=== PATIENT | male | born 1940 | race Caucasian/White ===

== ENCOUNTER 2023-08-28 23:30 | Emergency (ER) | payer OTHER ==
[2023-08-29 00:05] LABS: Absolute Lymphocytes (CBC) 1.3 K/uL (0.7-4.9); Hematocrit 30.1 % (39.6-49.0); MCV 74.7 fL (80-100); MPV 7.8 fL (7.6-11.3); Platelets 118 thou/uL (152-406); Protime INR 1.21; RBC Red Blood Cell Count 4.03 M/uL (4.33-5.43)
[2023-08-29 00:21] LABS: AST/SGOT 7 U/L (15-37); Albumin 3.1 g/dL (3.4-5.0); Alkaline Phosphatase 165 U/L (45-117); BUN Blood Urea Nitrogen 19 mg/dL (7-18); Bicarbonate 33 mEq/L (21-32); Bilirubin Direct 0.1 mg/dL (0-0.2); Bilirubin Indirect, Calculated 0.2 mg/dL (0.2-0.8); Bilirubin Total 0.3 mg/dL (0.2-1.0); Glomerular Filtration Rate 41 ml/min (=/>90); Glucose Level 143 mg/dL (74-106); Magnesium 2.1 mg/dL (1.6-2.4); NT PRO-BNP 1134 pg/mL (<450); Potassium 3.4 mEq/L (3.5-5.1); Protein, Total 6.7 g/dL (6.4-8.2); Sodium Level 140 mEq/L (136-145); Troponin High Sensitivity 7.8 pg/mL (<58.9)
[2023-08-29 00:23] LABS: ALT/SGPT < 10 U/L (16-61)
--- NOTE | 2023-08-29 04:12 | EDPHYS ---
Physician Documentation [facility] Name: Daniel Sharp Age: 83 yrs Sex: Male : 1940 Arrival Date: 08/28/2023 Time: 23:30 Bed 20 Private MD: ED Physician Chip Mcguire HPI: 08/28 23:43 This 83 yrs old Male presents to ER via Wheelchair with complaints of Chest sp4 Pain. 08/29 00:28 Is a very pleasant 83-year-old male presents with acute onset chest pain 2 hours ago sp4 described as midsternal pressure which was alleviated with 3 tablets of nitroglycerin prior to arrival. This is patient's first visit to this emergency room. Patient has history of atrial fibrillation, diabetes mellitus type 2, congestive heart failure, coronary artery disease, history of CABG, history of several stents, history of hypertension, neuropathy, chronic anticoagulation with Plavix and Xarelto. History of GERD, hyperlipidemia, hypothyroidism, depression, history of diabetic neuropathy, history of hypertension, history of gout, history of chronic pain,. Patient's medications include Protonix 40 mg p.o. daily, Xarelto 15 mg daily, atorvastatin 80 mg daily, nitroglycerin as needed, levothyroxine 50 mcg daily, spironolactone 50 mg daily, escitalopram 10 mg daily gabapentin 600 mg twice a day, isosorbide dinitrate 30 mg daily, metoprolol extended release 25 mg daily, fentanyl patch 50 mcg daily, allopurinol 100 mg daily, Bumex 1 mg twice a day. 00:35 Lastly patient is on Plavix 75 mg p.o. daily . sp4 Historical: - Allergies: 08/28 23:33 No Known Allergies; jb4 - Home Meds: 08/29 00:18 gabapentin 600 mg oral tablet 1 tab 3 times per day [Active]; cetirizine 10 mg oral tm6 tablet 1 tab daily [Active]; bumetanide 1 mg Oral tablet 1 tab daily [Active]; atorvastatin 80 mg oral tablet 1 tab daily [Active]; metoprolol succinate 25 mg oral Tablet, Extended Release 24 hr 1 tab nightly [Active]; clopidogrel 75 mg oral tablet 1 tab daily [Active]; isosorbide dinitrate 30 mg Oral tablet 1 tab daily [Active]; escitalopram oxalate 10 mg oral tablet 1 tab twice a day [Active]; levothyroxine 50 mcg tablet 1 tabs daily [Active]; pantoprazole 40 mg oral tablet, delayed release (enteric coated) 1 tab daily [Active]; spironolactone 50 mg Oral tablet 1 tab daily [Active]; - PMHx: 08/28 23:33 HTN; DM; CHF; A-fib; Neuropathy; jb4 08/29 00:26 Hypothyroidism; Chronic back pain; Diabetes mellitus; tm6 - PSHx: 08/28 23:33 Open Heart surgery; jb4 - Immunization history:: Adult Immunizations up to date. - Social history:: Smoking status: Patient denies any tobacco usage or history of. ROS: 08/29 00:36 Constitutional: Negative for fever, chills, and weight loss, positive chest pressure sp4 All other systems are negative, Exam: 00:36 Constitutional: This is a well developed, well nourished patient who is awake, alert, sp4 and in no acute distress. Head/Face: Normocephalic, atraumatic. Eyes: Pupils equal round and reactive to light, extra-ocular motions intact. Lids and lashes normal. Conjunctiva and sclera are not injected. Cornea within normal limits. Periorbital areas with no swelling, redness, or edema. ENT: Nares patent. No nasal discharge, no septal abnormalities noted. Tympanic membranes are normal and external auditory canals are clear. Oropharynx with no redness, swelling, or masses, exudates, or evidence of obstruction, uvula midline. Mucous membranes moist. Neck: Trachea midline, no thyromegaly or masses palpated, and no cervical lymphadenopathy. Supple, full range of motion without nuchal rigidity, or vertebral point tenderness. Chest/axilla: Normal chest wall appearance and motion. Nontender with no deformity. No lesions are appreciated. Cardiovascular: Regular rate and rhythm with a normal S1 and S2. No gallops, murmurs, or rubs. Normal PMI, no JVD. No pulse deficits. Respiratory: Lungs have equal breath sounds bilaterally, clear to auscultation and percussion. No rales, rhonchi or wheezes noted. No increased work of breathing, no retractions or nasal flaring. Abdomen/GI: Soft, non-tender, with normal bowel sounds. No distension or tympany. No guarding or rebound. No evidence of tenderness throughout. Back: No spinal tenderness. No costovertebral tenderness. Skin: Warm, dry with normal turgor. Normal color with no rashes, no lesions, and no evidence of cellulitis. MS/ Extremity: Pulses equal, no cyanosis. Neurovascular intact. Full, normal range of motion. Neuro: Awake and alert, GCS 15, oriented to person, place, time, and situation. Cranial nerves II-XII grossly intact. Motor strength 5/5 in all extremities. Sensory grossly intact. Psych: Awake, alert, with orientation to person, place and time. Behavior, mood, and affect are within normal limits 00:37 ECG was reviewed by the Attending Physician. There is ventricular rate 63, normal sinus sp4 rhythm at the rate of 63, EKG time 2334. 03:44 Repeat EKG at 23 34 normal sinus rhythm with a rate of 63, no ST elevation or sp4 depression, no ectopy. Normal EKG Vital Signs: 08/28 23:32 Weight 92.08 kg (R); Height 5 ft. 8 in. (R); jb4 23:39 BP 148 / 60; Pulse 64; Resp 14; Pulse Ox 99% on R/A; tm6 23:43 Temp 97.9(O); tm6 23:43 Pain 0/10; tm6 08/29 00:46 BP 131 / 54; Pulse 62; Resp 16; Pulse Ox 95% ; Pain 0/10; tm6 01:43 BP 131 / 56; Pulse 62; Resp 14; Pulse Ox 96% ; Pain 0/10; tm6 03:01 BP 127 / 52; Pulse 63; Resp 15; Pulse Ox 93% on R/A; Pain 0/10; tm6 04:09 BP 130 / 52; Pulse 70; Resp 20; Pulse Ox 97% on R/A; Pain 7/10; tm6 08/28 23:32 Body Mass Index 30.87 (92.08 kg, 172.72 cm) jb4 23:43 Pain Scale: Adult tm6 08/29 00:46 Pain Scale: Adult tm6 01:43 Pain Scale: Adult tm6 03:01 Pain Scale: Adult tm6 04:09 Pain Scale: Adult tm6 MDM: 08/28 23:41 Patient medically screened. sp4 12/13 02:21 ED course: Chest X ray - COMPARISON: None. FINDINGS: Single portable AP view of the sp4 chest. Right costophrenic angle is not fully included. Normal size of the cardiac silhouette. Postsurgical changes related to prior CABG. Prominent opacity in the right suprahilar region could be due to pneumonia or mass. There are some hazy and interstitial opacities in the right mid to lower lung and at the left lung base. No pneumothorax. No visualized pleural effusion. No acute osseous abnormality. IMPRESSION: Prominent opacity in the right suprahilar region which could be due to pneumonia or mass. Recommend CT with contrast for further evaluation. . 03:03 ED course: Chest - RadLex: XR CHEST 1 VIEW CLINICAL HISTORY: 83 years Male, CHEST PAIN sp4 COMPARISON: None. FINDINGS: Single portable AP view of the chest. Right costophrenic angle is not fully included. Normal size of the cardiac silhouette. Postsurgical changes related to prior CABG. Prominent opacity in the right suprahilar region could be due to pneumonia or mass. There are some hazy and interstitial opacities in the right mid to lower lung and at the left lung base. No pneumothorax. No visualized pleural effusion. No acute osseous abnormality. IMPRESSION: Prominent opacity in the right suprahilar region which could be due to pneumonia or mass. Recommend CT with contrast for further evaluation. . 04:18 Differential diagnosis: abnormal EKG, acute myocardial infarction, acute pericarditis, sp4 anxiety, coronary artery disease chest wall pain. HEART Score: History: Moderately Suspicious (1), ECG: Normal (0), Age: > or = 65 years (2), Risk Factors: > or = 3 Risk factors for atherosclerotic disease (2), Troponin: < or = 1 x Normal Limit (0), Total Score = 5. Data reviewed: vital signs, nurses notes, lab test result(s), EKG, radiologic studies, plain films. ED course: The finding of opacification in the right upper lung -advised the patient to see picker box operator for CT of the chest on outpatient basis. 08/28 23:41 Order name: Basic Metabolic Panel; Complete Time: 00:28 sp4 12 23:41 Order name: CBC with Diff; Complete Time: 00:28 sp4 08/28 23:41 Order name: LFT's; Complete Time: 00:28 sp4 08/28 23:41 Order name: Magnesium; Complete Time: 00:28 sp4 08/28 23:41 Order name: NT PRO-BNP; Complete Time: 00:28 sp4 08/28 23:41 Order name: PT-INR; Complete Time: 00:28 sp4 08/28 23:41 Order name: Troponin HS; Complete Time: 00:28 sp4 08/29 01:59 Order name: Troponin High Sensitivity: to be collected at 0300; Complete Time: 04:13 pf1 08/28 23:41 Order name: XRAY Chest (1 view) sp4 08/28 23:41 Order name: EKG; Complete Time: 23:41 sp4 08/29 02:21 Order name: EKG; Complete Time: 02:22 sp4 08/28 23:41 Order name: Cardiac monitoring; Complete Time: 23:44 sp4 08/28 23:41 Order name: EKG - Nurse/Tech; Complete Time: 23:44 sp4 08/28 23:41 Order name: IV Saline Lock; Complete Time: 23:44 sp4 08/28 23:41 Order name: Labs collected and sent; Complete Time: 23:44 sp4 08/28 23:41 Order name: O2 Per Protocol; Complete Time: 23:44 sp4 08/28 23:41 Order name: O2 Sat Monitoring; Complete Time: 23:44 sp4 08/29 02:21 Order name: EKG - Nurse/Tech; Complete Time: 02:55 sp4 EC:37 Rate is 63 beats/min. Rhythm is regular, Normal Sinus Rhythm. QRS [place] is Normal. [place] sp4 interval is normal. QRS interval is normal. QT interval is normal. No Q waves. T waves are Normal. No ST changes noted. Clinical impression: Normal ECG. Interpreted by me. Reviewed by me. Administered Medications: 04:11 Drug: Acetaminophen PO 1000 mg PO once Route: PO; tm6 Disposition Summary: 08/29/23 04:11 Discharge Ordered Notes: WE recommend visit with Client Renewal Specialist tomorrow or today Location: Home sp4 Problem: new sp4 Symptoms: have improved sp4 Condition: Stable sp4 Diagnosis - Abdominal pain, Generalized sp4 - Chest pain, unspecified sp4 Followup: sp4 - With: Private Physician - When: 2 - 3 days - Reason: If symptoms return Discharge Instructions: - Discharge Summary Sheet sp4 - Nonspecific Chest Pain, Adult sp4 Forms: - Patient Portal Instructions sp4 Signatures: Dispatcher [employer] Duran Mahoney RN RN jb4 Chip Mcguire MD MD sp4 Eva Meyer RN RN tm6
--- NOTE | 2023-08-29 04:12 | ER ---
Nurse's Notes [facility] Name: Daniel Sharp Age: 83 yrs Sex: Male : 1940 Arrival Date: 08/28/2023 Time: 23:30 Bed 20 Private MD: Diagnosis: Abdominal pain, Generalized;Chest pain, unspecified Presentation: 08/28 23:32 Chief complaint: Patient states: I am having chest pressure and a sharp pain on the jb4 left side of my chest and my left arm is tingling, I am not sure if it is from my chest pain or neuropathy. Coronavirus screen: At this time, the client does not indicate any symptoms associated with coronavirus-19. Ebola Screen: No symptoms or risks identified at this time. Initial Sepsis Screen: Does the patient meet any 2 criteria? No. Patient's initial sepsis screen is negative. Does the patient have a suspected source of infection? No. Patient's initial sepsis screen is negative. Risk Assessment: Do you want to hurt yourself or someone else? Patient reports no desire to harm self or others. Onset of symptoms was August 28, 2023. Transition of care: patient was not received from another setting of care. 23:32 Method Of Arrival: Wheelchair jb4 23:32 Acuity: KHOI 3 jb4 23:[address] Salguero PCP and Cardiology Dr. Adan Ibarra [phone], pf1 at [facility] at . Historical: - Allergies: 23:33 No Known Allergies; jb4 - Home Meds: 08/29 00:18 gabapentin 600 mg oral tablet 1 tab 3 times per day [Active]; cetirizine 10 mg oral tm6 tablet 1 tab daily [Active]; bumetanide 1 mg Oral tablet 1 tab daily [Active]; atorvastatin 80 mg oral tablet 1 tab daily [Active]; metoprolol succinate 25 mg oral Tablet, Extended Release 24 hr 1 tab nightly [Active]; clopidogrel 75 mg oral tablet 1 tab daily [Active]; isosorbide dinitrate 30 mg Oral tablet 1 tab daily [Active]; escitalopram oxalate 10 mg oral tablet 1 tab twice a day [Active]; levothyroxine 50 mcg tablet 1 tabs daily [Active]; pantoprazole 40 mg oral tablet, delayed release (enteric coated) 1 tab daily [Active]; spironolactone 50 mg Oral tablet 1 tab daily [Active]; - PMHx: 08/28 23:33 HTN; DM; CHF; A-fib; Neuropathy; jb4 08/29 00:26 Hypothyroidism; Chronic back pain; Diabetes mellitus; tm6 - PSHx: 08/28 23:33 Open Heart surgery; jb4 - Immunization history:: Adult Immunizations up to date. - Social history:: Smoking status: Patient denies any tobacco usage or history of. Screenin:41 [facility] ED Fall Risk Assessment (Adult) History of falling in the last 3 months, tm6 including since admission No falls in past 3 months (0 pts). Abuse screen: Denies threats or abuse. Denies injuries from another. Nutritional screening: No deficits noted. Tuberculosis screening: No symptoms or risk factors identified. Assessment: 23:39 General: Appears in no apparent distress. Behavior is calm, cooperative, appropriate tm6 for age. Pain: Complains of pain in chest and left arm Quality of pain is described as aching, tingling. Neuro: Level of Consciousness is awake, alert, obeys commands, Oriented to person, place, time, situation. Cardiovascular: Reports chest pain, Capillary refill < 3 seconds Patient's skin is warm and dry. Rhythm is sinus rhythm Chest pain. Respiratory: Airway is patent Respiratory effort is even, unlabored, Respiratory pattern is regular, symmetrical. GI: Abdomen is round non-distended. : No signs and/or symptoms were reported regarding the genitourinary system. EENT: No signs and/or symptoms were reported regarding the EENT system. Derm: No signs and/or symptoms reported regarding the dermatologic system. Musculoskeletal: No signs and/or symptoms reported regarding the musculoskeletal system. 23:42 Reassessment: Fentanyl patch on left deltoid; diabetic patch on right deltoid. tm6 23:43 Cardiovascular: Chest pain quality is pressure. tm6 08/29 00:47 Reassessment: Patient appears in no apparent distress at this time. Patient and/or tm6 family updated on plan of care and expected duration. Pain level reassessed. Patient is alert, oriented x 3, equal unlabored respirations, skin warm/dry/pink. Patient denies pain at this time. 01:44 Reassessment: No changes from previously documented assessment. tm6 02:34 Reassessment: elimination needs met. tm6 03:02 Reassessment: Patient appears in no apparent distress at this time. Patient and/or tm6 family updated on plan of care and expected duration. Pain level reassessed. Patient is alert, oriented x 3, equal unlabored respirations, skin warm/dry/pink. 04:10 Reassessment: patient said he had 7/10 back pain, has chronic back pain. tm6 Vital Signs: 08/28 23:32 Weight 92.08 kg (R); Height 5 ft. 8 in. (R); jb4 23:39 BP 148 / 60; Pulse 64; Resp 14; Pulse Ox 99% on R/A; tm6 23:43 Temp 97.9(O); tm6 23:43 Pain 0/10; tm6 08/29 00:46 BP 131 / 54; Pulse 62; Resp 16; Pulse Ox 95% ; Pain 0/10; tm6 01:43 BP 131 / 56; Pulse 62; Resp 14; Pulse Ox 96% ; Pain 0/10; tm6 03:01 BP 127 / 52; Pulse 63; Resp 15; Pulse Ox 93% on R/A; Pain 0/10; tm6 04:09 BP 130 / 52; Pulse 70; Resp 20; Pulse Ox 97% on R/A; Pain 7/10; tm6 08/28 23:32 Body Mass Index 30.87 (92.08 kg, 172.72 cm) jb4 23:43 Pain Scale: Adult tm6 08/29 00:46 Pain Scale: Adult tm6 01:43 Pain Scale: Adult tm6 03:01 Pain Scale: Adult tm6 04:09 Pain Scale: Adult tm6 Vitals: 08/28 23:39 Cardiac Rhythm Assessment Regular Sinus rhythm. tm6 ED Course: 23:32 Patient arrived in ED. rv1 23:33 Triage completed. jb4 23:33 Arm band placed on right wrist. jb4 23:38 Eva Meyer RN is Primary Nurse. tm6 23:40 Chip Mcguire MD is Attending Physician. sp4 23:41 Patient has correct armband on for positive identification. Placed in gown. Bed in low tm6 position. Call light in reach. Side rails up X2. Provided Education on: VS monitoring. Client placed on continuous cardiac and pulse oximetry monitoring. NIBP monitoring applied. alarm security or surveillance monitor on. Noise minimized. Warm blanket given. 23:41 No provider procedures requiring assistance completed. tm6 23:54 Inserted saline lock: 22 gauge in right antecubital area, using aseptic technique. tm6 23:56 Troponin HS Sent. pf1 23:56 PT-INR Sent. pf1 23:56 NT PRO-BNP Sent. pf1 23:56 Magnesium Sent. pf1 23:56 LFT's Sent. pf1 23:56 CBC with Diff Sent. pf1 12 00:27 XRAY Chest (1 view) In Process Unspecified. EDMS 03:00 Troponin High Sensitivity: to be collected at 0300 Sent. pf1 04:18 IV discontinued, intact, bleeding controlled, No redness/swelling at site. Pressure tm6 dressing applied. Administered Medications: 04:11 Drug: Acetaminophen PO 1000 mg PO once Route: PO; tm6 Medication: 04:18 VIS not applicable for this client. tm6 Outcome: 04:11 Discharge ordered by MD. otero 04:18 Discharged to home via wheelchair, with family, tm6 04:18 Condition: stable 04:18 Discharge instructions given to patient, family, Instructed on discharge instructions, follow up and referral plans. Demonstrated understanding of instructions, follow-up care, 04:18 Patient left the ED. tm6 Signatures: Dispatcher [employer] Duran Mahoney, RN RN jb4 Diane Tan RN RN pf1 Ariana Arthur Sergey, MD MD sp4 Eva Meyer RN RN tm6
[2023-08-29] MEDS ORDERED: ACETAMINOPHEN 500 MG TAB ONE (04:22)
[2023-08-29 05:07] VITALS: TEMP 97.9
[2023-08-29 05:21] VITALS: BP 130/52; O2SAT 97
--- NOTE | 2023-08-29 13:03 | EKG ---
Test Date: 2023-08-28 Test Time: 23:34:28 Medical Geneticist: JOSE DAVID MEASUREMENT RESULTS: Intervals: Rate: 63 IN: 194 QRSD: 90 QT: 428 QTc: 437 [place]: P: 61 IN: 194 QRS: 39 T: 23 INTERPRETIVE STATEMENTS: Normal sinus rhythm Nonspecific ST abnormality Abnormal ECG Compared to ECG 10/14/2008 20:19:39 ST (T wave) deviation now present T-wave abnormality no longer present Electronically Signed On 08-29-23 13:02:58 ADMIN DIR by Fortunato Nayak
--- NOTE | 2023-08-29 13:11 | RAD REPORT ---
EXAM DESCRIPTION: RAD - Chest Single View - 08/29/2023 12:25 am CLINICAL HISTORY: 83 years Male, CHEST PAIN COMPARISON: None. FINDINGS: Single portable AP view of the chest. Right costophrenic angle is not fully included. Norm al size of the cardiac silhouette. Postsurgical changes related to prior CABG. Prominent opacity in t he right suprahilar region could be due to pneumonia or mass. There are some hazy and interstitial op acities in the right mid to lower lung and at the left lung base. No pneumothorax. No visualized pleu ral effusion. No acute osseous abnormality. IMPRESSION: Prominent opacity in the right suprahilar region which could be due to pneumonia or mass . Recommend CT with contrast for further evaluation. Electronically signed by: Peggy Quezada MD 08/29/2023 12:33 AM SUPERVISOR TELEVISION [employer]ASSIS REPAIR Due to temporary technical issues with the PACS/Fluency reporting system, reports are being signed by the in house radiologist without review as a courtesy to ensure prompt reporting. The interpreting r adiologist is fully responsible for the content of the report.
== END 2023-08-29 04:18 | disposition home or self-care (01) ==
LOC: ER 23:30
DX: R07.89 Other chest pain (principal); R10.84 Generalized abdominal pain; E11.9 Type 2 diabetes mellitus without complications; I10 Essential (primary) hypertension; I50.9 Heart failure, unspecified; I48.91 Unspecified atrial fibrillation; Z79.01 Long term (current) use of anticoagulants
CPT/HCPCS: 36415; 71045; 80048; 80076; 83735; 83880; 84484; 85025; 85610; 93005

== ENCOUNTER 2024-01-29 10:32 | Observation (INO) | payer OTHER ==
[2024-01-29 11:35] LABS: Absolute Basophils 0.1 K/uL (0-0.5); Absolute Eosinophils 0.4 K/uL (0-0.5); Absolute Lymphocytes (CBC) 0.9 K/uL (0.7-4.9); Absolute Monocytes 0.5 K/uL (0.1-1.3); Basophils % 0.8 % (0-1.3); Eosinophils % 6.2 % (0-4.4); Hematocrit 38.8 % (39.6-49.0); Hemoglobin 12.6 g/dL (13.6-17.9); Lymphocytes % 12.8 % (15.3-44.8); MCH 25.8 pg (27.0-35.0); MCHC 32.4 g/dL (32.0-36.0); MCV 79.7 fL (80-100); MPV 7.7 fL (7.6-11.3); Monocytes % 7.6 % (3.3-12.3); Neutrophils % 72.6 % (41.7-73.7); Platelets 172 thou/uL (152-406); RBC Red Blood Cell Count 4.87 M/uL (4.33-5.43); Red Cell Distribution Width 17.2 % (12.1-15.2)
[2024-01-29 11:36] LABS: Specific Gravity 1.007 (1.005-1.030); Urine Bilirubin NEGATIVE (Negative); Urine Blood Negative (Negative); Urine Clarity Clear (Clear); Urine Color Colorless (Yellow); Urine Glucose NEGATIVE (Negative); Urine Ketones NEGATIVE (Negative); Urine Microscopic Reflex YN NO UMIC; Urine Nitrite NEGATIVE (Negative); Urine Protein NEGATIVE (Negative); Urine Urobilinogen Normal (Normal)
[2024-01-29 11:38] LABS: PT Prothrombin Time 12.2 SECONDS (9.5-12.5); Protime INR 1.11
[2024-01-29 11:49] LABS: SARS-CoV-2 Antigen CONTROL BLUE LINE VIS/BG OK; SARS-CoV-2 Antigen Rapid Res Negative (Negative)
[2024-01-29 12:00] LABS: AST/SGOT 11 U/L (15-37); Albumin 3.2 g/dL (3.4-5.0); Albumin/Globulin Ratio 0.8 (1.1-1.8); Alkaline Phosphatase 157 U/L (45-117); Anion Gap 8.4 mEq/L (5.0-15.0); BUN Blood Urea Nitrogen 31 mg/dL (7-18); Bicarbonate 28 mEq/L (21-32); Bilirubin Direct 0.2 mg/dL (0-0.2); Bilirubin Indirect, Calculated 0.3 mg/dL (0.2-0.8); Bilirubin Total 0.5 mg/dL (0.2-1.0); Glomerular Filtration Rate 43 ml/min (=/>90); Glucose Level 234 mg/dL (74-106); Lipase 39 U/L (13-75); NT PRO-BNP 619 pg/mL (<450); Potassium 4.4 mEq/L (3.5-5.1); Protein, Total 7.2 g/dL (6.4-8.2); Sodium Level 135 mEq/L (136-145); Troponin High Sensitivity 6.2 pg/mL (<58.9)
[2024-01-29 12:02] LABS: ALT/SGPT < 14 U/L (16-61)
--- NOTE | 2024-01-29 12:11 | RAD REPORT ---
EXAM DESCRIPTION: Jaylyn Single View01/29/2024 12:00 pm CLINICAL HISTORY: Shortness of breath COMPARISON: none FINDINGS: Mild patchy opacities mid and lower right lung. Left lung appears clear. Heart is mildly enlarged. Postsurgical changes involve the chest IMPRESSION: Mild patchy opacities right lung probably pneumonia
--- NOTE | 2024-01-29 12:11 | ER ---
Nurse's Notes [facility] Name: Daniel Sharp Age: 83 yrs Sex: Male : 1940 Arrival Date: 01/29/2024 Time: 10:32 Bed 18 Private MD: Diagnosis: Syncope Near;Chest pain, unspecified;Dyspnea Presentation: 01/28 10:33 Chief complaint: EMS states: SOB, GEN WEAKNESS. Coronavirus screen: At this time, the bp client does not indicate any symptoms associated with coronavirus-19. Ebola Screen: No symptoms or risks identified at this time. Initial Sepsis Screen: Does the patient meet any 2 criteria? No. Patient's initial sepsis screen is negative. Does the patient have a suspected source of infection? No. Patient's initial sepsis screen is negative. Risk Assessment: Do you want to hurt yourself or someone else? Patient reports no desire to harm self or others. Onset of symptoms is unknown. Care prior to arrival: Glucose check: 216. 10:33 Method Of Arrival: EMS: [facility] bp 10:33 Acuity: KHOI 2 bp Triage Assessment: 10:34 General: Appears distressed, Behavior is cooperative, appropriate for age, anxious. bp Pain: Denies pain. EENT: No deficits noted. Neuro: Level of Consciousness is awake, alert, obeys commands, Oriented to Appropriate for age. Cardiovascular: Rhythm is sinus rhythm. Respiratory: Reports shortness of breath Airway is patent. GI: No signs and/or symptoms were reported involving the gastrointestinal system. : No signs and/or symptoms were reported regarding the genitourinary system. Derm: No deficits noted. Musculoskeletal: No deficits noted. Historical: - Allergies: 10:34 No Known Allergies; bp - PMHx: 10:34 a-fib; CHF; chronic back pain; diabetes mellitus; DM; HTN; Hypothyroidism; neuropathy; bp - Immunization history:: Adult Immunizations up to date. - Infectious Disease History:: Denies. - Social history:: Smoking status: Patient denies any tobacco usage or history of. Screenin:36 [facility] ED Fall Risk Assessment (Adult) History of falling in the last 3 months, bp including since admission No falls in past 3 months (0 pts). Abuse screen: Denies threats or abuse. Denies injuries from another. Nutritional screening: No deficits noted. Tuberculosis screening: No symptoms or risk factors identified. Assessment: 10:40 General: Appears in no apparent distress. comfortable, Behavior is appropriate for age. bp Pain: Denies pain. Neuro: Level of Consciousness is awake, alert, obeys commands, Oriented to Appropriate for age. Cardiovascular: Rhythm is sinus rhythm. 11:38 Reassessment: Patient appears in no apparent distress at this time. Patient is alert, bp oriented x 3, equal unlabored respirations, skin warm/dry/pink. 14:30 Reassessment: Patient appears in no apparent distress at this time. Patient is alert, bp oriented x 3, equal unlabored respirations, skin warm/dry/pink. 16:53 Reassessment: REPORT FAXED FOR 204. bp Vital Signs: 10:33 BP 135 / 76; Pulse 94; Resp 24; Temp 98; Pulse Ox 99% on R/A; Weight 88.45 kg; Height 5 bp ft. 9 in. ; 10:36 BP 128 / 63; Pulse 87; Resp 24; Temp 97.6; Pulse Ox 98% ; bp 11:37 BP 103 / 63; Pulse 86; Resp 16; Pulse Ox 94% ; bp 13:30 BP 112 / 67; Pulse 84; Resp 15; Pulse Ox 95% ; bp 15:00 BP 131 / 69; Pulse 74; Resp 15; Pulse Ox 98% ; bp 16:55 BP 128 / 61; Pulse 86; Resp 15; Pulse Ox 99% ; bp 10:33 Body Mass Index 28.80 (88.45 kg, 175.26 cm) bp ED Course: 10:32 Patient arrived in ED. ll1 10:33 Jelani Mccormick, OLESYA is Primary Nurse. bp 10:34 Triage completed. bp 10:34 Kwabena Andujar MD is Attending Physician. lisa 10:34 Arm band placed on. bp 10:36 Patient has correct armband on for positive identification. bp 11:20 Inserted saline lock: 22 gauge in right forearm, using aseptic technique. Blood bp collected. 11:53 XRAY Chest (1 view) In Process Unspecified. EDMS 12:10 Ivan May MD is Hospitalizing Provider. lisa 16:55 No provider procedures requiring assistance completed. Patient admitted, IV remains in bp place. 16:57 Provided Education on: N/A. bp Administered Medications: 13:32 Not Given (Hemodynamic Parameters): ns 0.9% 1000 ml IV at 125 ml/hr continuous bp Medication: 16:57 VIS not applicable for this client. bp Outcome: 12:11 Decision to Hospitalize by Provider. lisa 16:55 Admitted to Tele accompanied by tech, family with patient, via stretcher, room 204, bp with chart, Report called to FAX 16:55 Condition: stable 16:55 Instructed on the need for admit, 17:54 Patient left the ED. bp Signatures: Dispatcher [employer] Kwabena Verduzco MD MD cha Peltier, Brian, RN RN bp Lisa Seals RN RN ll1
--- NOTE | 2024-01-29 12:11 | EDPHYS ---
Physician Documentation [facility] Name: Daniel Sharp Age: 83 yrs Sex: Male : 1940 Arrival Date: 01/29/2024 Time: 10:32 Bed 18 Private MD: ED Physician Kwabena Andujar HPI: 01/28 11:05 This 83 yrs old Male presents to ER via EMS with complaints of syncope, cp , lisa sob , weakness. Historical: - Allergies: 10:34 No Known Allergies; bp - PMHx: 10:34 a-fib; CHF; chronic back pain; diabetes mellitus; DM; HTN; Hypothyroidism; neuropathy; bp - Immunization history:: Adult Immunizations up to date. - Infectious Disease History:: Denies. - Social history:: Smoking status: Patient denies any tobacco usage or history of. ROS: 11:08 Constitutional: Negative for fever, chills, and weight loss, Eyes: Negative for injury, lisa pain, redness, and discharge, ENT: Negative for injury, pain, and discharge, Neck: Negative for injury, pain, and swelling, Cardiovascular: Negative for chest pain, palpitations, and edema, Abdomen/GI: Negative for abdominal pain, nausea, vomiting, diarrhea, and constipation, Back: Negative for injury and pain, : Negative for injury, bleeding, discharge, and swelling, MS/Extremity: Negative for injury and deformity, Skin: Negative for injury, rash, and discoloration, Psych: Negative for depression, anxiety, suicide ideation, homicidal ideation, and hallucinations, Allergy/Immunology: Negative for hives, rash, and allergies, Endocrine: Negative for neck swelling, polydipsia, polyuria, polyphagia, and marked weight changes, Hematologic/Lymphatic: Negative for swollen nodes, abnormal bleeding, and unusual bruising, 11:08 Respiratory: Positive for cough, shortness of breath, 11:08 Neuro: Positive for near syncope, weakness, Exam: 11:08 Constitutional: This is a well developed, well nourished patient who is awake, alert, lisa and in no acute distress. Head/Face: Normocephalic, atraumatic. Eyes: Pupils equal round and reactive to light, extra-ocular motions intact. Lids and lashes normal. Conjunctiva and sclera are non-icteric and not injected. Cornea within normal limits. Periorbital areas with no swelling, redness, or edema. ENT: Nares patent. No nasal discharge, no septal abnormalities noted. Tympanic membranes are normal and external auditory canals are clear. Oropharynx with no redness, swelling, or masses, exudates, or evidence of obstruction, uvula midline. Mucous membranes moist. Neck: Trachea midline, no thyromegaly or masses palpated, and no cervical lymphadenopathy. Supple, full range of motion without nuchal rigidity, or vertebral point tenderness. No Meningismus. Chest/axilla: Normal chest wall appearance and motion. Nontender with no deformity. No lesions are appreciated. Cardiovascular: Regular rate and rhythm with a normal S1 and S2. No gallops, murmurs, or rubs. Normal PMI, no JVD. No pulse deficits. Abdomen/GI: Soft, non-tender, with normal bowel sounds. No distension or tympany. No guarding or rebound. No evidence of tenderness throughout. Back: No spinal tenderness. No costovertebral tenderness. Full range of motion. Male : Normal genitalia with no discharge or lesions. Skin: Warm, dry with normal turgor. Normal color with no rashes, no lesions, and no evidence of cellulitis. MS/ Extremity: Pulses equal, no cyanosis. Neurovascular intact. Full, normal range of motion. Neuro: Awake and alert, GCS 15, oriented to person, place, time, and situation. Cranial nerves II-XII grossly intact. Motor strength 5/5 in all extremities. Sensory grossly intact. Cerebellar exam normal. Normal gait. Psych: Awake, alert, with orientation to person, place and time. Behavior, mood, and affect are within normal limits. 11:08 Respiratory: Exam negative for 11:23 ECG was reviewed by the Attending Physician. [facility] Vital Signs: 10:33 BP 135 / 76; Pulse 94; Resp 24; Temp 98; Pulse Ox 99% on R/A; Weight 88.45 kg; Height 5 bp ft. 9 in. ; 10:36 BP 128 / 63; Pulse 87; Resp 24; Temp 97.6; Pulse Ox 98% ; bp 11:37 BP 103 / 63; Pulse 86; Resp 16; Pulse Ox 94% ; bp 13:30 BP 112 / 67; Pulse 84; Resp 15; Pulse Ox 95% ; bp 15:00 BP 131 / 69; Pulse 74; Resp 15; Pulse Ox 98% ; bp 16:55 BP 128 / 61; Pulse 86; Resp 15; Pulse Ox 99% ; bp 10:33 Body Mass Index 28.80 (88.45 kg, 175.26 cm) bp MDM: 10:34 Patient medically screened. lisa 11:09 Differential diagnosis: Anemia Bronchitis CHF exacerbation, Chronic Obstructive lisa Pulmonary Disease abnormal EKG, acute myocardial infarction, coronary artery disease gastritis, hiatal hernia, peptic ulcer disease, pneumonia, pulmonary embolus, pneumonia, pulmonary edema, Pulmonary Embolism reactive airway disease. Antibiotic administration: Not indicated. Differential Diagnosis altered mental status, sepsis, flu. The patient was not given aspirin in the Emergency Department. Not indicated due to patient's past medical history. Immunization status: Pneumococcal vaccine: within last 5 years. Influenza vaccine: within last 5 years. Data reviewed: vital signs, nurses notes, EMS record, lab test result(s), EKG, radiologic studies, CT scan, plain films. Consideration of Admission/Observation Patient was admitted/placed on observation. Escalation of care including admission/observation considered. Test considered but Not performed: Ultrasound no 2 d echo. 01/28 10:37 Order name: Basic Metabolic Panel; Complete Time: 12:07 [facility] 01/28 10:37 Order name: CBC with Diff; Complete Time: 11:47 [facility] 01/28 10:37 Order name: LFT's; Complete Time: 12:07 [facility] 01/28 10:37 Order name: Magnesium; Complete Time: 12:07 [facility] 01/28 10:37 Order name: NT PRO-BNP; Complete Time: 12:07 [facility] 01/28 10:37 Order name: PT-INR; Complete Time: 11:47 01/28 10:37 Order name: Troponin HS; Complete Time: 12:07 [facility] 01/28 10:37 Order name: Lipase; Complete Time: 12:07 [facility] 01/28 10:37 Order name: Urinalysis w/ reflexes; Complete Time: 11:47 [facility] 01/28 10:37 Order name: Blood Culture Adult (2) lisa 01/28 10:37 Order name: Lactate w/ 2H reflex if indic.; Complete Time: 12:07 [facility] 01/28 10:37 Order name: Flu; Complete Time: 12:07 [facility] 01/28 10:37 Order name: SARS RAPID; Complete Time: 12:07 01/28 15:05 Order name: Glucose, Ancillary Testing [facility] 01/28 15:06 Order name: Glucose, Ancillary Testing [facility] 01/28 10:37 Order name: XRAY Chest (1 view) [facility] 01/28 10:37 Order name: EKG; Complete Time: 10:38 [facility] 01/28 10:37 Order name: Cardiac monitoring; Complete Time: 10:39 [facility] 01/28 10:37 Order name: EKG - Nurse/Tech; Complete Time: 11:35 [facility] 01/28 10:37 Order name: IV Saline Lock; Complete Time: 11:35 [facility] 01/28 10:37 Order name: Labs collected and sent; Complete Time: 11:35 [facility] 01/28 10:37 Order name: O2 Per Protocol; Complete Time: 10:39 [facility] 01/28 10:37 Order name: O2 Sat Monitoring; Complete Time: 10:39 [facility] EC:23 Rate is 80 beats/min. Rhythm is regular. QRS [place] is Normal. PA interval is normal. QRS lisa interval is normal. QT interval is normal. No Q waves. T waves are Normal. No ST changes noted. Clinical impression: LVH and No evidence of ischemia. Interpreted by me. Reviewed by me. Administered Medications: 13:32 Not Given (Hemodynamic Parameters): ns 0.9% 1000 ml IV at 125 ml/hr continuous bp Disposition Summary: 01/29/24 12:11 Hospitalization Ordered Notes: Hospitalization Status: Observation lisa Provider: Ivan May cha Location: Telemetry/MedSurg (observation) lisa Condition: Stable lisa Problem: new lisa Symptoms: have improved lisa Bed/Room Type: Standard [facility] Room Assignment: 204(01/29/24 16:35) bd Diagnosis - Syncope Near lisa - Chest pain, unspecified lisa - Dyspnea lisa Forms: - Medication Reconciliation Form lisa - SBAR form lisa - Leadership Thank You Letter lisa Signatures: Dispatcher [employer] EDMS Sita Bo Corey, MD MD cha Peltier, Brian, RN RN bp Corrections: (The following items were deleted from the chart) 10:38 10:37 BASIC METABOLIC PANEL+C.LAB.BRZ ordered. EDMS EDMS 10:38 10:37 CBC+H.LAB.BRZ ordered. EDMS EDMS 10:38 10:37 HEPATIC FUNCTION+C.LAB.BRZ ordered. EDMS EDMS 10:38 10:37 MAGNESIUM+C.LAB.BRZ ordered. EDMS EDMS 10:38 10:37 PROBNP+C.LAB.BRZ ordered. EDMS EDMS 10:38 10:37 PROTIME (+INR)+COAG.LAB.BRZ ordered. EDMS EDMS 10:38 10:37 Troponin High Sensitivity+C.LAB.BRZ ordered. EDMS EDMS 10:38 10:38 LIPASE+C.LAB.BRZ ordered. EDMS EDMS 10:38 10:38 Urinalysis+U.LAB.BRZ ordered. EDMS EDMS 10:38 10:38 BLOOD CULTURE*+BA.LAB.BRZ ordered. EDMS EDMS 10:38 10:38 LACTATE+C.LAB.BRZ ordered. EDMS EDMS 10:38 10:38 Influenza Screen (A \T\ B)+BA.LAB.BRZ ordered. EDMS EDMS 10:38 10:38 SARS-COV-2 Antigen Rapid+I.LAB.BRZ ordered. EDMS EDMS 11:26 11:02 Head Brain Wo Cont+CT.RAD.BRZ ordered. EDMS EDMS 16:35 12:11 lisa bd
--- NOTE | 2024-01-29 13:12 | P.HP ---
Certification for Inpatient Patient admitted to: Observation With expected LOS: <2 Midnights Patient will require the following post-hospital care: None Practitioner: I am a practitioner with admitting privileges, knowledge of patient current condition, hospital course, and medical plan of care. Services: Services provided to patient in accordance with Admission requirements found in Title 42 Section 412.3 of the Code of Federal Regulations Patient History Date of Service: 01/29/24 Reason for admission: Near syncope History of Present Illness: Patient is a 83-year-old gentleman who came to the hospital with near syncope. Patient has a history of stage IV lung cancer. Patient has been getting treatment-immunotherapy. Patient's cancer has slowed. However, he still has lost quite a bit of weight and he is feeling weaker. Patient states that he was very lethargic and was difficult to arouse. Patient came into the emergency room for observation. In the ER patient was hemodynamically stable. He was awake and alert. He states his blood sugars been stable. His insulin levels have been decreasing. Patient admitted to the hospital for observation. Allergies No Known Allergies Allergy (Unverified 01/29/24 16:32) Home Medications: Acetaminophen [Tylenol Extra Strength] 2 tab PO Q8H PRN 01/29/24 Allopurinol 100 mg PO DAILY 01/29/24 Atorvastatin Calcium [Lipitor] 80 mg PO DAILY 01/29/24 Bumetanide 2 mg PO BID 01/29/24 Cholecalciferol (Vitamin D3) [Vitamin D3] 25 mcg PO DAILY 01/29/24 Clopidogrel Bisulfate [Plavix*] 75 mg PO DAILY 01/29/24 Escitalopram Oxalate [Lexapro] 10 mg PO DAILY 01/29/24 Gabapentin 600 mg PO TID 01/29/24 Insulin Regular, Human [Novolin R Flexpen] 15 unit SQ TIDWM 01/29/24 Isosorbide Dinitrate 30 mg PO DAILY 01/29/24 Levothyroxine [Synthroid*] 50 mcg PO DAILY 01/29/24 Metoprolol Succinate 25 mg PO BEDTIME 01/29/24 NPH, Human Insulin Isophane [Humulin N] 30 unit SQ BID 01/29/24 Pantoprazole [Protonix Tab*] 40 mg PO DAILY 01/29/24 Potassium Chloride 10 meq PO DAILY 01/29/24 Rivaroxaban [Xarelto*] 15 mg PO DAILY 01/29/24 Sennosides [Senokot] 8.6 mg PO BID 01/29/24 fentaNYL [Fentanyl] 25 mcg TD Q72H #10 patch 01/30/24 - Past Medical/Surgical History -: Diabetes -: Hypertension -: CAD -: Gout -: Depression -: Stage IV lung cancer Past Surgical History: Patient denies surgical history - Family History Father Family History: Reviewed- Non-Contributory - Social History Smoking Status: Former smoker Alcohol use: No CD- Drugs: No Review of Systems 10-point ROS is otherwise unremarkable Physical Examination - Vital Signs Temperature: 98 F Blood Pressure: 110/80 Pulse: 80 Respirations: 18 Pulse Ox (%): 95 - Physical Exam General: Alert, In no apparent distress, Oriented x3 HEENT: Atraumatic, PERRLA, Mucous membr. moist/pink, EOMI, Sclerae nonicteric Neck: Supple, 2+ carotid pulse no bruit, No LAD, Without JVD or thyroid abnormality Respiratory: Clear to auscultation bilaterally, Normal air movement Cardiovascular: Regular rate/rhythm, Normal S1 S2 Gastrointestinal: Normal bowel sounds, Soft and benign, Non-distended, No tenderness Musculoskeletal: No clubbing, No swelling, No tenderness Integumentary: No rashes Neurological: Normal gait, Normal speech, Normal strength at 5/5 x4 extr, Normal tone, Sensation intact, Cranial nerves 3-12 intact, Normal affect Lymphatics: No axilla or inguinal lymphadenopathy - Studies Laboratory Data (last 24 hrs) 01/29/24 01/29/24 01/29/24 11:20 11:20 11:20 WBC 6.90 Hgb 12.6 L Hct 38.8 L Plt Count 172 PT 12.2 INR 1.11 Sodium 135 L Potassium 4.4 BUN 31 H Creatinine 1.60 H Glucose 234 H Magnesium 2.0 Total Bilirubin 0.5 AST 11 L ALT < 14 L Alkaline Phosphatase 157 H Lipase 39 Microbiology Data (last 24 hrs): 01/29/24 11:20 Nasopharnyx Influenza Type A Antigen Screen - Final 01/29/24 11:20 Nasopharnyx Influenza Type B Antigen Screen - Final Assessment & Plan - Problems (Diagnosis) (1) Near syncope Current Visit: Yes Status: Acute (2) CAD (coronary artery disease) Current Visit: Yes Status: Acute (3) Metastatic cancer to lung Current Visit: Yes Status: Acute (4) Diabetes mellitus Current Visit: Yes Status: Acute (5) HTN (hypertension) Current Visit: Yes Status: Acute (6) Gout Current Visit: Yes Status: Acute - Plan Plan: 1. Carotid Doppler 2. Echocardiogram 3. Monitor hemodynamics and monitor blood sugars 4. Monitor on telemetry for 24 hours 5. Adjust fentanyl patch 6. GI DVT prophylaxis Discharge Plan: Home Plan to discharge in: 24 Hours - Advance Directives Does patient have a Living Will: No Does patient have a Durable POA for Healthcare: No - Code Status/Comfort Care Code Status Assessed: Yes Code Status: Full Code Critical Care: No Time Spent Managing PTS Care (In Minutes): 45
[2024-01-29] MEDS ORDERED: ONDANSETRON 4 MG/2 ML VIAL IV PRN (21:16)
[2024-01-29] MEDS ORDERED: ACETAMINOPHEN 500 MG TAB PO PRN (21:20)
[2024-01-29] MEDS: HOME MED 1 EA UNK (Fentanyl [Fentanyl] Patch.Td72) TD SCH (21:30)
[2024-01-29] MEDS: NA CHLORIDE 0.9% 1,000 ML ONE (21:30)
[2024-01-29] MEDS ORDERED: GLUCAGON 1 MG/VIAL IM PRN (21:34)
[2024-01-29] MEDS ORDERED: D50W 25 GM/50 ML SYRINGE IV PRN (21:34)
[2024-01-29] MEDS: ATORVASTATIN 80 MG TAB ONE (21:50)
[2024-01-29] MEDS: GABAPENTIN 300 MG CAP ONE (21:50)
[2024-01-29] MEDS: ACETAMINOPHEN 500 MG TAB ONE (21:50)
[2024-01-29] MEDS: INSULIN REGULAR (HUMAN) 100 UNIT/ML ONE (21:50)
[2024-01-29] MEDS: NA CHLORIDE 0.9% 1,000 ML IV SCH (22:00)
[2024-01-29 22:15] VITALS: BMI 28.8
[2024-01-29 23:20] VITALS: O2SAT 94
[2024-01-30] MEDS ORDERED: D10W 125 ML IV PRN (02:04)
[2024-01-30 05:05] LABS: Absolute Eosinophils 0.5 K/uL (0-0.5); Absolute Lymphocytes (CBC) 1.4 K/uL (0.7-4.9); Absolute Monocytes 0.6 K/uL (0.1-1.3); Basophils % 0.7 % (0-1.3); Eosinophils % 7.9 % (0-4.4); Hematocrit 37.3 % (39.6-49.0); Hemoglobin 12.1 g/dL (13.6-17.9); Lymphocytes % 21.4 % (15.3-44.8); MCH 26.1 pg (27.0-35.0); MCHC 32.6 g/dL (32.0-36.0); MCV 80.2 fL (80-100); MPV 7.7 fL (7.6-11.3); Monocytes % 8.9 % (3.3-12.3); Neutrophils % 61.1 % (41.7-73.7); Platelets 155 thou/uL (152-406); RBC Red Blood Cell Count 4.65 M/uL (4.33-5.43); Red Cell Distribution Width 17.8 % (12.1-15.2)
[2024-01-30 05:13] LABS: PT Prothrombin Time 12.1 SECONDS (9.5-12.5); PTT, Activated Partial Thromb 31.6 SECONDS (24.3-36.9); Protime INR 1.1
[2024-01-30 05:14] LABS: Albumin 3.3 g/dL (3.4-5.0); Albumin/Globulin Ratio 0.9 (1.1-1.8); Alkaline Phosphatase 140 U/L (45-117); Anion Gap 9.2 mEq/L (5.0-15.0); BUN Blood Urea Nitrogen 27 mg/dL (7-18); Bicarbonate 28 mEq/L (21-32); Bilirubin Total 0.6 mg/dL (0.2-1.0); Globulin 3.6 g/dL (2.3-3.5); Glomerular Filtration Rate 51 ml/min (=/>90); Glucose Level 123 mg/dL (74-106); HDL Cholesterol 32 mg/dL (40-60); LDL Cholesterol, Calculated 80 mg/dL (<130); LDL Cholesterol,Calc NonReport 80; Potassium 4.2 mEq/L (3.5-5.1); Protein, Total 6.9 g/dL (6.4-8.2); Sodium Level 136 mEq/L (136-145); Troponin High Sensitivity 6.4 pg/mL (<58.9)
[2024-01-30 05:17] LABS: ALT/SGPT < 14 U/L (16-61); AST/SGOT < 10 U/L (15-37)
--- NOTE | 2024-01-30 07:29 | RAD REPORT ---
EXAM DESCRIPTION: - CP - 01/30/2024 1:50 am CLINICAL HISTORY: Syncope Headache, drowsiness, syncope COMPARISON: No comparisons TECHNIQUE: Real-time sonographic evaluation of both carotid systems was performed. Doppler interroga tion was performed with waveform tracing bilaterally. FINDINGS: Normal high resistance waveforms are noted in both external carotid arteries. The common c arotid arteries and internal carotid arteries show normal low resistance waveforms. No significant plaque formation is seen. Peak systolic and end diastolic velocity values and the ICA/ CCA ratios are in the non-hemodynamically significant range. Antegrade flow seen in both vertebral arteries. IMPRESSION: No significant atherosclerotic changes noted. No evidence of a hemodynamically significant stenosis.
[2024-01-30] MEDS: LEVOTHYROXINE SOD 0.05 MG TABLET PO SCH (08:02)
[2024-01-30] MEDS: PANTOPRAZOLE 40MG TABLET PO SCH (08:02)
[2024-01-30] MEDS: ATORVASTATIN 80 MG TAB PO SCH (08:04)
[2024-01-30] MEDS: ISOSORBIDE DINIT 20 MG TAB PO SCH (08:04)
[2024-01-30] MEDS: VITAMIN D 1000 UNIT TAB PO SCH (08:05)
[2024-01-30] MEDS: ESCITALOPRAM 20 MG TAB PO SCH (08:06)
[2024-01-30] MEDS: GABAPENTIN 300 MG CAP PO SCH (08:06)
[2024-01-30] MEDS: CLOPIDOGREL 75 MG TABLET PO SCH (08:06)
[2024-01-30] MEDS: allopurinoL 100 MG TAB PO SCH (08:06)
[2024-01-30] MEDS: BUMETANIDE 1 MG TABLET PO SCH (08:29)
[2024-01-30] MEDS: INSULIN REGULAR (HUMAN) 100 UNIT/ML SQ SCH (08:34)
[2024-01-30] MEDS: ACETAMINOPHEN 500 MG TAB PO PRN (08:51)
[2024-01-30] MEDS ORDERED: FENTANYL 50 MCG/PATCH TD SCH (09:00)
--- NOTE | 2024-01-30 09:17 | P.PN ---
Subjective Date of Service: 01/30/24 Admitted for syncope,, chest pain, dyspnea Echo ordered, fall precaution Review of Systems Per HPI Physical Examination - Vital Signs Temperature: 97.5 F Blood Pressure: 127/60 Pulse: 108 Respirations: 17 Pulse Ox (%): 98 - Physical Exam General: Alert, In no apparent distress, Oriented x3 HEENT: Atraumatic, Normocephalic Neck: Supple, 2+ carotid pulse no bruit Cardiovascular: Normal pulses, Regular rate/rhythm Gastrointestinal: Normal bowel sounds, Soft and benign Musculoskeletal: No clubbing, No contractures Integumentary: No breakdown, No significant lesion Neurological: Normal gait, Normal speech, Normal strength at 5/5 x4 extr - Studies Laboratory Data (last 24 hrs) 01/29/24 01/29/24 01/29/24 11:20 11:20 11:20 WBC 6.90 Hgb 12.6 L Hct 38.8 L Plt Count 172 PT 12.2 INR 1.11 Sodium 135 L Potassium 4.4 BUN 31 H Creatinine 1.60 H Glucose 234 H Magnesium 2.0 Total Bilirubin 0.5 AST 11 L ALT < 14 L Alkaline Phosphatase 157 H Lipase 39 Microbiology Data (last 24 hrs): 01/29/24 11:20 Nasopharnyx Influenza Type A Antigen Screen - Final 01/29/24 11:20 Nasopharnyx Influenza Type B Antigen Screen - Final Assessment And Plan - Plan Assessment plan Syncope, Echo ordered Orthostatic vital sign Chest pain Telemetry, trend troponin Serial troponins negative Dyspnea-likely secondary to CHF O2 2 L keep sats greater than 92 per Bumex twice daily [id number] Microcytic anemia Trend H&H Hemoglobin 12.6 Acute kidney injury likely prerenal CHF Trend kidney BUN 31, creatinine 1.60-BUN 27 1.38 estimated GFR 50 a-fib History CHF Telemetry, BNP, trend troponin chronic back pain As needed analgesics resume appropriate home diabetes mellitus; DM Accu-Cheks, sliding scale HTN Hypothyroidism neuropathy Resume appropriate home meds Full code DVT Diet cardiac Disposition Discharge Plan: Home - Code Status/Comfort Care Comfort Measures: Palliative Care Critical Care: No Time Spent Managing PTS Care (In Minutes): 35
[2024-01-30 10:31] VITALS: TEMP 98
[2024-01-30] MEDS: BISACODYL E.C. 5 MG TAB PO PRN (10:32)
[2024-01-30] MEDS: METOPROLOL XL 25 MG TAB PO SCH (10:33)
[2024-01-30 12:30] VITALS: BP 110/55
--- NOTE | 2024-01-30 12:32 | ECHO ---
HEIGHT: 5 ft 9 in WEIGHT: 195 lb 0 oz DATE OF STUDY: 01/30/[address]: Ivan May MD 2-DIMENSIONAL: YES M.MODE: YES DOPPLER: YES COLOR FLOW: YES TDS: PORTABLE: YES DEFINITY: BUBBLE STUDY: DIAGNOSIS: SYNCOPE CARDIAC HISTORY: CATHERIZATION: SURGERY: PROSTHETIC VALVE: PACEMAKER: MEASUREMENTS (cm) DIASTOLIC (NORMALS) SYSTOLIC (NORMALS) IVSd 1.1 (0.6-1.2) LA Diam 3.4 (1.9-4.0) LVEF 60-65% LVIDd 3.9 (3.5-5.7) LVIDs 2.5 (2.0-3.5) %FS 34% LVPWd 1.2 (0.6-1.2) Ao Diam 2.8 (2.0-3.7) 2 DIMENSIONAL ASSESSMENT: RIGHT ATRIUM: NORMAL LEFT ATRIUM: NORMAL RIGHT VENTRICLE: NORMAL LEFT VENTRICLE: NORMAL TRICUSPID VALVE: NORMAL MITRAL VALVE: NORMAL PULMONIC VALVE: NORMAL AORTIC VALVE: NORMAL PERICARDIAL EFFUSION: NONE AORTIC ROOT: NORMAL LEFT VENTRICULAR WALL MOTION: NORMAL DOPPLER/COLOR FLOW: GRADE I DIASTOLIC DYSFUNCTION COMMENTS: 1. NORMAL LEFT VENTRICULAR SYSTOLIC FUNCTION, EJECTION FRACTION 60-65%, NORMAL WALL MOTION 2. GRADE I DIASTOLIC DYSFUNCTION 3. MILD ELEVATED FILLING PRESSURE (RIGHT ATRIAL FILLING PRESSURE IS 5-10 mmHg) TECHNOLOGIST: OCHOA JAFFE
--- NOTE | 2024-01-30 18:58 | P.DS ---
Admission Date: 01/29/24 Discharge Date: 01/30/24 Disposition: ROUTINE DISCHARGE Discharge Condition: GOOD Reason for Admission: Near syncope Brief History of Present Illness: Patient is a 83-year-old gentleman who came to the hospital with near syncope. Patient has a history of stage IV lung cancer. Patient has been getting treatment-immunotherapy. Patient's cancer has slowed. However, he still has lost quite a bit of weight and he is feeling weaker. Patient states that he was very lethargic and was difficult to arouse. Patient came into the emergency room for observation. In the ER patient was hemodynamically stable. He was awake and alert. He states his blood sugars been stable. His insulin levels have been decreasing. Patient admitted to the hospital for observation. - Physical Exam General: Alert, In no apparent distress, Oriented x3 HEENT: Atraumatic, PERRLA, Mucous membr. moist/pink, EOMI, Sclerae nonicteric Neck: Supple, 2+ carotid pulse no bruit, No LAD, Without JVD or thyroid abnormality Respiratory: Clear to auscultation bilaterally, Normal air movement Cardiovascular: Regular rate/rhythm, Normal S1 S2 Gastrointestinal: Normal bowel sounds, Soft and benign, Non-distended, No tenderness Musculoskeletal: No clubbing, No swelling, No tenderness Integumentary: No rashes Neurological: Normal gait, Normal speech, Normal strength at 5/5 x4 extr, Normal tone, Sensation intact, Cranial nerves 3-12 intact, Normal affect Lymphatics: No axilla or inguinal lymphadenopathy Hospital Course: 83-year-old gentleman who came to the hospital with near syncope. Patient has a history of stage IV lung cancer. Patient has been getting treatment- immunotherapy. Patient's cancer has slowed. However, he still has lost quite a bit of weight and he is feeling weaker. Patient states that he was very lethargic and was difficult to arouse. Patient came into the emergency room for observation. Was noted to have near syncopal episode. Metastatic lung CA history, Condition improved with IV fluids, Patient tolerating diet, stable for discharge to home with follow-up appointment with primary care physician. PROBLEM: Near syncopal episode-orthostatic vital sign-were stable Metastatic lung CA follow-up with oncology Rad/Lab/Micro: Echocardiogram DOPPLER/COLOR FLOW: GRADE I DIASTOLIC DYSFUNCTION COMMENTS: 1. NORMAL LEFT VENTRICULAR SYSTOLIC FUNCTION, EJECTION FRACTION 60-65%, NORMAL WALL MOTION 2. GRADE I DIASTOLIC DYSFUNCTION 3. MILD ELEVATED FILLING PRESSURE (RIGHT ATRIAL FILLING PRESSURE IS 5-10 mmHg Carotid Doppler IMPRESSION: No significant atherosclerotic changes noted. No evidence of a hemodynamically significant stenosis. Chest x-ray Heart is mildly enlarged. Postsurgical changes involve the chest IMPRESSION: Mild patchy opacities right lung probably pneumonia versus pulmonary edema Mildly elevated BNP 619, afebrile Serial troponins Continue home medicines as previously prescribed GOAL: Clear understanding of disease process INSTRUCTIONS: Physician Discharge Instructions: -Follow-up with PCP in 1 to 2 weeks -Please call Dr. May at [phone] if any questions regarding hospital stay -Please call nursing station at [phone] if any nursing or medication questions -Return to the emergency room if symptoms worsen Diet: ADA, low sodium Activity: Fall precautions Vital Signs/Physical Exam: Temp Pulse Resp BP Pulse Ox 98 F 84 18 110/55 L 95 01/30/24 10:32 01/30/24 12:25 01/30/24 10:32 01/30/24 12:25 01/30/24 10:32 Laboratory Data at Discharge: WBC 6.60 thou/uL (4.3-10.9) 01/30/24 04:05 Hgb 12.1 g/dL (13.6-17.9) L 01/30/24 04:05 Hct 37.3 % (39.6-49.0) L 01/30/24 04:05 Plt Count 155 thou/uL (152-406) 01/30/24 04:05 PT 12.1 SECONDS (9.5-12.5) 01/30/24 04:05 INR 1.10 01/30/24 04:05 APTT 31.6 SECONDS (24.3-36.9) 01/30/24 04:05 Sodium 136 mEq/L (136-145) 01/30/24 04:05 Potassium 4.2 mEq/L (3.5-5.1) 01/30/24 04:05 BUN 27 mg/dL (7-18) H 01/30/24 04:05 Creatinine 1.38 mg/dL (0.70-1.30) H 01/30/24 04:05 Glucose 123 mg/dL (74-106) H 01/30/24 04:05 Magnesium 2.0 mg/dL (1.6-2.4) 01/29/24 11:20 Total Bilirubin 0.6 mg/dL (0.2-1.0) 01/30/24 04:05 AST < 10 U/L (15-37) L 01/30/24 04:05 ALT < 14 U/L (16-61) L 01/30/24 04:05 Alkaline Phosphatase 140 U/L (45-117) H 01/30/24 04:05 Triglycerides 95 mg/dL (<150) 01/30/24 04:05 Cholesterol 131 mg/dL (<200) 01/30/24 04:05 HDL Cholesterol 32 mg/dL (40-60) L 01/30/24 04:05 Cholesterol/HDL Ratio 4.09 01/30/24 04:05 Lipase 39 U/L (13-75) 01/29/24 11:20 Home Medications: Acetaminophen [Tylenol Extra Strength] 2 tab PO Q8H PRN 01/29/24 Allopurinol 100 mg PO DAILY 01/29/24 Atorvastatin Calcium [Lipitor] 80 mg PO DAILY 01/29/24 Cholecalciferol (Vitamin D3) [Vitamin D3] 25 mcg PO DAILY 01/29/24 Clopidogrel Bisulfate [Plavix*] 75 mg PO DAILY 01/29/24 Escitalopram Oxalate [Lexapro] 10 mg PO DAILY 01/29/24 Gabapentin 600 mg PO TID 01/29/24 Insulin Regular, Human [Novolin R Flexpen] 15 unit SQ TIDWM 01/29/24 Levothyroxine [Synthroid*] 50 mcg PO DAILY 01/29/24 Metoprolol Succinate 25 mg PO BEDTIME 01/29/24 NPH, Human Insulin Isophane [Humulin N] 30 unit SQ BID 01/29/24 Pantoprazole [Protonix Tab*] 40 mg PO DAILY 01/29/24 Potassium Chloride 10 meq PO DAILY 01/29/24 Rivaroxaban [Xarelto*] 15 mg PO DAILY 01/29/24 Sennosides [Senokot] 8.6 mg PO BID 01/29/24 Bumetanide 1 mg PO DAILYPRN PRN #10 01/30/24 fentaNYL [Fentanyl] 25 mcg TD Q72H #10 patch 01/30/24 New Medications: Bumetanide 1 mg PO DAILYPRN PRN #10 PRN Reason: fluid increased fentaNYL [Fentanyl] 25 mcg TD Q72H #10 patch Physician Discharge Instructions: -DC IV and DC home -Follow-up with PCP in 1 to 2 weeks -Follow-up with Cardiology in 1 to 2 weeks -Please call Dr. May at [phone] if any questions regarding hospital stay -Please call nursing station at [phone] if any nursing or medication questions -Return to the emergency room if symptoms worsen -patient was advised by his Robotic Maintenance Technician to hold Bumex and only use it as needed -patient was advised to hold isosorbide (Imdur) -continue metoprolol Diet: AHA Activity: Fall precautions Followup: Jessica Lopez NP [Primary Care Provider] - 1-2 Weeks Physician Review: Patient Assessed, Agree with Above Assessment and Plan Time spent managing pt's care (in minutes): 55
[2024-01-30] MEDS ORDERED: METOPROLOL XL 25 MG TAB PO SCH (21:00)
[2024-01-31] MEDS ORDERED: FENTANYL 50 MCG/PATCH TD SCH (09:00)
== END 2024-01-30 16:31 | disposition home or self-care (01) ==
LOC: ER 10:32 → 2ND 13:10
PROVIDERS: ADMIT Hospitalist; ATTEND Hospitalist
DX: R55 Syncope and collapse (principal); R07.9 Chest pain, unspecified; R06.00 Dyspnea, unspecified; C78.00 Secondary malignant neoplasm of unspecified lung; I25.10 Atherosclerotic heart disease of native coronary artery without angina pectoris; E11.9 Type 2 diabetes mellitus without complications; I10 Essential (primary) hypertension; M10.9 Gout, unspecified; Z11.52 Encounter for screening for COVID-19
CPT/HCPCS: 93005; 93306; 87040 ×2; 85025 ×2; 80048; 36415; 83735; 85610 ×2; 80061; 82947 ×4; 80076; 83605; 85730; 81003; 84484 ×2; 83690; 80053; 83880; 87804 ×2; 71045; 93880; 99285; 87811; J7030 ×2; G0378

== ENCOUNTER 2024-08-24 00:27 | Inpatient (IN) | payer OTHER ==
[2024-08-24] MEDS ORDERED: NA CHLORIDE 0.9% 500 ML ONE (01:14)
[2024-08-24 01:27] LABS: Absolute Eosinophils 0.2 K/uL (0-0.5); Absolute Lymphocytes (CBC) 0.7 K/uL (0.7-4.9); Absolute Monocytes 0.4 K/uL (0.1-1.3); Absolute Neutrophil 5.9 K/uL (1.8-8.0); Basophils % 0.5 % (0-1.3); Hematocrit 36.6 % (39.6-49.0); Hemoglobin 12.3 g/dL (13.6-17.9); Lymphocytes % 9.9 % (15.3-44.8); MCH 27.7 pg (27.0-35.0); MCHC 33.7 g/dL (32.0-36.0); MCV 82.3 fL (80-100); MPV 7.1 fL (7.6-11.3); Monocytes % 5.9 % (3.3-12.3); Neutrophils % 80.7 % (41.7-73.7); Platelets 177 thou/uL (152-406); RBC Red Blood Cell Count 4.44 M/uL (4.33-5.43); Red Cell Distribution Width 13.9 % (12.1-15.2)
[2024-08-24 01:41] LABS: SARS-CoV-2 Antigen CONTROL BLUE LINE VIS/BG OK; SARS-CoV-2 Antigen Rapid Res Negative (Negative)
[2024-08-24 01:43] LABS: Anion Gap 7.7 mEq/L (5.0-15.0); Potassium 3.7 mEq/L (3.5-5.1); Troponin High Sensitivity 9.1 pg/mL (<58.9)
--- NOTE | 2024-08-24 04:10 | EDPHYS ---
Physician Documentation [facility] Name: Daniel Sharp Age: 84 yrs Sex: Male : 1940 Arrival Date: 08/24/2024 Time: 00:27 Bed 16 Private MD: ED Physician James Chogn HPI: 08/24 00:47 This 84 yrs old Male presents to ER via Ambulatory with complaints of ec2 Shortness Of Breath, Doesn't Feel Right. 00:47 Patient with history of lung cancer arrives today for progressive weakness and chronic ec2 shortness of breath. Reports regular cough. No vomiting. Does complain of diarrhea which is baseline for him.. Historical: - Allergies: 00:41 No Known Allergies; al5 - Home Meds: 00:41 atorvastatin 80 mg Oral tablet 1 tab daily [Active]; bumetanide 1 mg Oral tablet 1 tab al5 daily [Active]; cetirizine 10 mg Oral tablet 1 tab daily [Active]; clopidogrel 75 mg Oral tablet 1 tab daily [Active]; escitalopram oxalate 10 mg Oral tablet 1 tab twice a day [Active]; gabapentin 600 mg Oral tablet 1 tab 3 times per day [Active]; isosorbide dinitrate 30 mg Oral tablet 1 tab daily [Active]; levothyroxine 50 mcg tablet 1 tabs daily [Active]; metoprolol succinate 25 mg Oral Tablet 1 tab nightly [Active]; pantoprazole 40 mg Oral tablet 1 tab daily [Active]; spironolactone 50 mg Oral tablet 1 tab daily [Active]; - PMHx: 00:41 a-fib; CHF; chronic back pain; diabetes mellitus; HTN; Hypothyroidism; neuropathy; al5 - PSHx: 00:41 open heart surgery; al5 - Immunization history:: Adult Immunizations up to date. - Infectious Disease History:: Denies. - Social history:: Smoking status: Patient denies any tobacco usage or history of. ROS: 00:48 Constitutional: as per hpi ec2 Exam: 00:48 Constitutional: GEN: NAD Head: atraumatic Eyes: EOMI Ears: External ears are ec2 normal. CV: regular rate LUNGS: no respiratory distress, no wheezes or rales or rhonchi ABD: non-distended SKIN: no evidence of rashes MSK: no evidence of trauma Vital Signs: 00:30 BP 164 / 58; Pulse 89; Resp 19; Pulse Ox 99% on 3 lpm NC; rg5 00:39 BP 164 / 58; Pulse 86; Resp 20; Temp 98.1; Pulse Ox 99% on 3 lpm NC; Weight 92.08 kg al5 (M); Height 5 ft. 9 in. ; 01:30 BP 163 / 66; Pulse 80; Resp 18; Pulse Ox 99% on 3 lpm NC; rg5 02:25 BP 112 / 52; Pulse 76; Resp 18; Pulse Ox 100% on 3 lpm NC; rg5 03:30 BP 127 / 72; Pulse 70; Resp 16; Pulse Ox 99% ; jj7 04:30 BP 137 / 59; Pulse 67; Resp 17; Pulse Ox 99% ; jj7 05:30 BP 106 / 60; Pulse 66; Resp 16; Pulse Ox 100% ; jj7 06:37 BP 121 / 62; Pulse 66; Resp 17; Pulse Ox 100% ; jj7 00:39 Body Mass Index 29.98 (92.08 kg, 175.26 cm) al5 MDM: 00:32 Medical Screening Exam initiated ec2 00:48 Data reviewed: vital signs, nurses notes. ED course: patient arrives today for feeling ec2 unwell and shortness of breath examination is revealing for nontoxic individual who is hemodynamically stable. Will obtain lab work, CT scan of the chest for the patient's cancer history. Differential diagnoses include processes such as pneumonia, effusion.. 00:49 ED course: EKG independently reviewed and interpreted by me, shows normal sinus rhythm, ec2 rate of 81, no acute ST segment elevations, intervals are nonactionable.. 01:45 ED course: Metabolic profile with renal dysfunction. CBC reassuring. COVID testing ec2 negative. Troponin within normal ranges. Pending flu and CT chest.. 04:09 ED course: CT scan of the chest shows bilateral pneumonia with right-sided pleural ec2 effusion that is small in size. Will give ceftriaxone and azithromycin. Patient with underlying lung cancer, will admit given his age, baseline oxygen requirement and concern for potentially deteriorating. Discussed case with hospitalist, pending admission.. 12 00:47 Order name: Basic Metabolic Panel; Complete Time: :45 ec2 08/24 00:47 Order name: CBC with Diff; Complete Time: 01:45 ec2 08/24 00:47 Order name: Troponin HS; Complete Time: 01:45 ec2 08/24 00:47 Order name: Influenza Screen (a \T\ B); Complete Time: 01:52 ec2 08/24 00:47 Order name: SARS RAPID; Complete Time: 01:45 ec2 08/24 04:04 Order name: Glucose, Ancillary Testing; Complete Time: 04:05 EDMS 08/24 05:10 Order name: Urinalysis w/ reflexes EDMS 08/24 05:10 Order name: CBC with Automated Diff EDMS 08/24 05:11 Order name: CBC with Automated Diff EDMS 08/24 05:11 Order name: Comprehensive Metabolic Panel EDMS 08/24 05:11 Order name: Comprehensive Metabolic Panel EDMS 08/24 05:11 Order name: Magnesium EDMS 08/24 05:11 Order name: Magnesium EDMS 08/24 05:11 Order name: Phosphorus EDMS 08/24 05:11 Order name: Phosphorus EDMS 08/24 06:36 Order name: Glucose, Ancillary Testing EDMS 08/24 00:47 Order name: CT Chest W/ Con ec2 08/24 00:47 Order name: Cardiac monitoring; Complete Time: 01:20 ec2 08/24 00:47 Order name: EKG - Nurse/Tech; Complete Time: 01:20 ec2 08/24 00:47 Order name: IV Saline Lock; Complete Time: 01:20 ec2 08/24 00:47 Order name: Labs collected and sent; Complete Time: 01:20 ec2 08/24 00:47 Order name: O2 Per Protocol; Complete Time: 01:20 ec2 08/24 00:47 Order name: O2 Sat Monitoring; Complete Time: 01:20 ec2 Administered Medications: 01:10 Drug: NS 0.9% IV 500 ml 500 ml IV at 1 bolus once; to be given as a bolus over 30 rg5 minutes Volume: 500 ml; Route: IV; Rate: 1 bolus; Site: left antecubital; 01:40 Follow up: IV Status: Completed infusion; IV Intake: 500ml rg5 04:40 Drug: Rocephin IV 1 grams IV at bolus once; Given slow IV push per pharmacy jj7 instructions Route: IV; Rate: bolus; Site: left antecubital; 04:45 Follow up: IV Status: Completed infusion jj7 04:40 Drug: AZITHromycin IVPB 500 mg IVPB once over 1 hrs; (mix in 250 mL NS) Route: IVPB; jj7 Infused Over: 1 hrs; Site: left antecubital; 06:00 Follow up: IV Status: Completed infusion jj7 Point of Care Testing: Blood Glucose: 03:53 Blood Glucose: 49 mg/dL; jj7 03:53 MD INFORMED jj7 Ranges: Critical Glucose Levels:Adult <50 mg/dl or >400 mg/dl <40 mg/dl or >180 mg/dl Disposition Summary: 08/24/24 04:09 Hospitalization Ordered Notes: Hospitalization Status: Inpatient Admission ec2 Provider: Jeremi Spicer ec2 Location: Telemetry/MedSurg (Inpatient) ec2 Condition: Stable ec2 Problem: an acute exacerbation ec2 Symptoms: have improved ec2 Bed/Room Type: Standard ec2 Room Assignment: 413(08/24/24 05:18) rv1 Diagnosis - Bilateral Pneumonia ec2 - Hypoglycemia, unspecified ec2 Forms: - Medication Reconciliation Form ec2 - SBAR form ec2 - Leadership Thank You Letter ec2 Signatures: Dispatcher [employer] Gilda Samano RN RN jj7 Ariana Arthur rv1 James Chong MD MD ec2 Kristian Paz RN RN rg5 Mandie Ortega RN RN al5 Corrections: (The following items were deleted from the chart) 00:43 00:41 PMHx: DM; al5 al5 00:47 00:47 BASIC METABOLIC PANEL+C.LAB.BRZ ordered. EDMS EDMS 00:47 00:47 CBC+H.LAB.BRZ ordered. EDMS EDMS 00:47 00:47 Troponin High Sensitivity+C.LAB.BRZ ordered. EDMS EDMS 00:47 00:47 Thorax W/ Con+CT.RAD.BRZ ordered. EDMS EDMS 00:48 00:48 Influenza Screen (A \T\ B)+BA.LAB.BRZ ordered. EDMS EDMS 00:48 00:48 SARS-COV-2 Antigen Rapid+I.LAB.BRZ ordered. EDMS EDMS 05:18 04:09 ec2 rv1
--- NOTE | 2024-08-24 04:10 | ER ---
Nurse's Notes [facility] Name: Daniel Sharp Age: 84 yrs Sex: Male : 1940 Arrival Date: 08/24/2024 Time: 00:27 Bed 16 Private MD: Diagnosis: Bilateral Pneumonia;Hypoglycemia, unspecified Presentation: 08/24 00:39 Chief complaint: Patient's son or daughter states: patient experiencing shortness of al5 breath, chills, fatigue, weakness, loss of voice since yesterday morning. currently has stage 4 lung CA and is chronically on 3 L NC. last chemo shot . Coronavirus screen: fatigue, shaking with chills, shortness of breath, sore throat. Ebola Screen: No symptoms or risks identified at this time. Initial Sepsis Screen: Does the patient meet any 2 criteria? No. Patient's initial sepsis screen is negative. Does the patient have a suspected source of infection? No. Patient's initial sepsis screen is negative. Risk Assessment: Do you want to hurt yourself or someone else? Patient reports no desire to harm self or others. Onset of symptoms was August 23, 2024. 00:39 Method Of Arrival: Ambulatory al5 00:39 Acuity: KHOI 3 al5 Triage Assessment: 00:43 General: Appears in no apparent distress. Behavior is calm, cooperative. Pain: Denies al5 pain. EENT: No signs and/or symptoms were reported regarding the EENT system. Neuro: Level of Consciousness is awake, alert, obeys commands, Oriented to person, place, time, situation. Cardiovascular: Capillary refill < 3 seconds Patient's skin is warm and dry. Respiratory: Reports shortness of breath Airway is patent Respiratory effort is even, labored, Respiratory pattern is regular, symmetrical, Onset: The symptoms/episode began/occurred yesterday, the patient has mild shortness of breath. GI: No signs and/or symptoms were reported involving the gastrointestinal system. : No signs and/or symptoms were reported regarding the genitourinary system. Derm: Skin is intact, Skin is pink, warm \T\ dry. normal. Musculoskeletal: No signs and/or symptoms reported regarding the musculoskeletal system. Historical: - Allergies: 00:41 No Known Allergies; al5 - Home Meds: 00:41 atorvastatin 80 mg Oral tablet 1 tab daily [Active]; bumetanide 1 mg Oral tablet 1 tab al5 daily [Active]; cetirizine 10 mg Oral tablet 1 tab daily [Active]; clopidogrel 75 mg Oral tablet 1 tab daily [Active]; escitalopram oxalate 10 mg Oral tablet 1 tab twice a day [Active]; gabapentin 600 mg Oral tablet 1 tab 3 times per day [Active]; isosorbide dinitrate 30 mg Oral tablet 1 tab daily [Active]; levothyroxine 50 mcg tablet 1 tabs daily [Active]; metoprolol succinate 25 mg Oral Tablet 1 tab nightly [Active]; pantoprazole 40 mg Oral tablet 1 tab daily [Active]; spironolactone 50 mg Oral tablet 1 tab daily [Active]; - PMHx: 00:41 a-fib; CHF; chronic back pain; diabetes mellitus; HTN; Hypothyroidism; neuropathy; al5 - PSHx: 00:41 open heart surgery; al5 - Immunization history:: Adult Immunizations up to date. - Infectious Disease History:: Denies. - Social history:: Smoking status: Patient denies any tobacco usage or history of. Screenin:35 [facility] ED Fall Risk Assessment (Adult) History of falling in the last 3 months, rg5 including since admission No falls in past 3 months (0 pts) Confusion or Disorientation No (0 pts) Intoxicated or Sedated No (0 pts) Impaired Gait Yes (1 pt) Mobility Assist Device Used Yes (1 pt) Altered Elimination No (0 pt) Score/Fall Risk Level 0 - 2 = Low Risk Oriented to surroundings, Maintained a safe environment, Hourly rounding (assess needs \T\ fall precautionary measures) done. Abuse screen: Denies threats or abuse. Nutritional screening: No deficits noted. Tuberculosis screening: No symptoms or risk factors identified. Assessment: 00:35 General: Appears in no apparent distress. Behavior is calm, cooperative, appropriate rg5 for age. Pain: Complains of pain in back Pain currently is 5 out of 10 on a pain scale. Quality of pain is described as aching, Pain began gradually. Neuro: Level of Consciousness is awake, alert, obeys commands, Oriented to person, place, time, situation. Cardiovascular: Patient's skin is warm and dry. Rhythm is sinus rhythm. Respiratory: Reports shortness of breath cough that is productive, Airway is patent Trachea midline Respiratory effort is even. GI: Abdomen is round non-distended, Abd is soft. : No signs and/or symptoms were reported regarding the genitourinary system. EENT: No deficits noted. Derm: Skin is intact, is fragile, Skin is dry, Skin is normal, Skin temperature is warm. Musculoskeletal: Circulation, motion, and sensation intact. Range of motion: intact in all extremities. 01:40 Reassessment: No changes from previously documented assessment. Patient and/or family rg5 updated on plan of care and expected duration. Pain level reassessed. Patient is alert, oriented x 3, equal unlabored respirations, skin warm/dry/pink. 02:30 Reassessment: No changes from previously documented assessment. Patient and/or family rg5 updated on plan of care and expected duration. Pain level reassessed. Patient is alert, oriented x 3, equal unlabored respirations, skin warm/dry/pink. 03:50 Reassessment: PT'S BLOOD SUGAR IS 49. PT GIVEN ORANGE JUICE, PUDDING AND PEANUT BUTTER. jj7 PT DOES NOT HAVE IN HIS TEETH SO HE CAN NOT EAT HIS SANDWICH. MD INFORMED. 05:30 Reassessment: Patient is alert, oriented x 3, equal unlabored respirations, skin jj7 warm/dry/pink. PT SLEEPING. Vital Signs: 00:30 BP 164 / 58; Pulse 89; Resp 19; Pulse Ox 99% on 3 lpm NC; rg5 00:39 BP 164 / 58; Pulse 86; Resp 20; Temp 98.1; Pulse Ox 99% on 3 lpm NC; Weight 92.08 kg al5 (M); Height 5 ft. 9 in. ; 01:30 BP 163 / 66; Pulse 80; Resp 18; Pulse Ox 99% on 3 lpm NC; rg5 02:25 BP 112 / 52; Pulse 76; Resp 18; Pulse Ox 100% on 3 lpm NC; rg5 03:30 BP 127 / 72; Pulse 70; Resp 16; Pulse Ox 99% ; jj7 04:30 BP 137 / 59; Pulse 67; Resp 17; Pulse Ox 99% ; jj7 05:30 BP 106 / 60; Pulse 66; Resp 16; Pulse Ox 100% ; jj7 06:37 BP 121 / 62; Pulse 66; Resp 17; Pulse Ox 100% ; jj7 00:39 Body Mass Index 29.98 (92.08 kg, 175.26 cm) al5 ED Course: 00:28 Patient arrived in ED. im 00:30 James Chong MD is Attending Physician. ec2 00:31 Kristian Paz, OLESYA is Primary Nurse. rg5 00:35 Patient has correct armband on for positive identification. Bed in low position. Call rg5 light in reach. Side rails up X 1. Door closed. Noise minimized. Warm blanket given. 00:35 No provider procedures requiring assistance completed. Inserted saline lock: 20 gauge rg5 in left antecubital area, using aseptic technique. Blood collected. Flushed with 10 mL NS. 00:41 Triage completed. al5 00:44 Arm band placed on right wrist. Patient placed in the treatment room, on a stretcher, al5 on oxygen, on pulse oximetry. 02:10 CT Chest W/ Con In Process Unspecified. EDMS 02:30 No apparent distress. Resting quietly. Awaiting radiology results. Awaiting CT Scan. rg5 03:30 Provided Education on: USE OF CALL SALAZAR. jj7 04:09 Jeremi Spicer MD is Hospitalizing Provider. ec2 06:44 Patient admitted, IV remains in place. jj7 Administered Medications: 01:10 Drug: NS 0.9% IV 500 ml 500 ml IV at 1 bolus once; to be given as a bolus over 30 rg5 minutes Volume: 500 ml; Route: IV; Rate: 1 bolus; Site: left antecubital; 01:40 Follow up: IV Status: Completed infusion; IV Intake: 500ml rg5 04:40 Drug: Rocephin IV 1 grams IV at bolus once; Given slow IV push per pharmacy jj7 instructions Route: IV; Rate: bolus; Site: left antecubital; 04:45 Follow up: IV Status: Completed infusion jj7 04:40 Drug: AZITHromycin IVPB 500 mg IVPB once over 1 hrs; (mix in 250 mL NS) Route: IVPB; jj7 Infused Over: 1 hrs; Site: left antecubital; 06:00 Follow up: IV Status: Completed infusion jj7 Medication: 00:35 VIS not applicable for this client. rg5 Point of Care Testing: Blood Glucose: 03:53 Blood Glucose: 49 mg/dL; jj7 03:53 MD INFORMED jj7 Ranges: Intake: 01:40 IV: 500ml; Total: 500ml. rg5 Outcome: 04:09 Decision to Hospitalize by Provider. ec2 06:44 Admitted to Med/surg accompanied by tech, room 413, Report called to SBAR FAXED TO [facility]TH [facility] FLOOR 06:44 Condition: improved 06:48 Patient left the ED. [facility] Signatures: Dispatcher [employer] Gilda Samano RN RN j7 Mally Escamilla Edwin, MD MD ec2 Kristian Paz, OLESYA RN rg5 Mandie Ortega RN RN al5 Corrections: (The following items were deleted from the chart) 00:43 00:41 PMHx: DM; al5 al5
[2024-08-24] MEDS ORDERED: CEFTRIAXONE 1000 MG/VIAL ONE (04:30)
[2024-08-24] MEDS ORDERED: AZITHROMYCIN 500 MG INJ IVPB ONE (04:31)
[2024-08-24] MEDS ORDERED: NA CHLORIDE 0.9% 250 ML ONE (04:31)
--- NOTE | 2024-08-24 04:42 | RAD REPORT ---
CLINICAL HISTORY: Lung cancer hx, SOB, dyspnea. COMPARISON: CT Chest 07/10/2024. TECHNIQUE: CT CHEST WITH IV CONTRAST on 08/24/2024 12:47 AM PROJECT MANAGEMENT INTERN. MIPS reconstructions were generated. This exam was performed according to our departmental dose-optimization program, which includes autom ated exposure control, adjustment of the mA and/or kV according to patient size and/or use of iterative reconstruction technique. MIP images were generated. FINDINGS: Thoracic aorta is normal in course and caliber without aneurysm or dissection. Pulmonary arteries are adequately opacified without acute or chronic filling defects. The heart is normal in size. There is no pericardial effusion. There are borderline central mediastin al lymph nodes. There is a small right pleural effusion. There is a small right pleural effusion. Central airways are patent. There is a large right upper lobe consolidation. There is mild patchy bibasilar involvement. There are no acute abnormalities within the limited images of the upper abdomen. There are no acute osseous findings. No suspicious bony lesions. IMPRESSION: Bilateral, mostly right upper lobe pneumonia with a small right pleural effusion. Electronically signed by: Triston Rosado MD 08/24/2024 03:59 AM PROJECT MANAGEMENT INTERN RP Due to temporary technical issues with the PACS/Followap reporting system, reports are being cierra d by the in-house radiologist without review as a courtesy to ensure prompt reporting the interpreting radiologist is fully responsible for the content of the report. Transcribed Date/Time: 08/24/2024 4:42 AM
[2024-08-24] MEDS ORDERED: ONDANSETRON 4 MG/2 ML VIAL IV PRN (05:05)
[2024-08-24] MEDS ORDERED: ALBUTEROL 2.5 MG/3 ML NEB SOL NEB PRN (05:05)
--- NOTE | 2024-08-24 05:11 | P.HP ---
Certification for Inpatient Patient admitted to: Inpatient With expected LOS: >2 Midnights Practitioner: I am a practitioner with admitting privileges, knowledge of patient current condition, hospital course, and medical plan of care. Services: Services provided to patient in accordance with Admission requirements found in Title 42 Section 412.3 of the Code of Federal Regulations Patient History Date of Service: 08/24/24 Reason for admission: SOB History of Present Illness: 84-year-old male with past medical history of diabetes, hypertension, hypothyroidism, CHF, A-fib, neuropathy, CAD , history of lung cancer on immunotherapy who was brought to ER with shortness of breath and generalized weakness which has been going on for the last 3 days and has been progressively getting worse and was brought to ER. Patient denies any chest pain. No nausea vomiting or diarrhea. No fever or chills. Feeling short of breath. Associated with cough with mucoid expectoration. No sick contacts. Patient was assessed in the ER and is admitted for further management of acute hypoxic respiratory failure and also pneumonia. Allergies No Known Allergies Allergy (Unverified 01/29/24 16:32) Home medications list reviewed: Yes Home Medications: Acetaminophen [Tylenol Extra Strength] 2 tab PO Q8H PRN 01/29/24 Allopurinol 100 mg PO DAILY 01/29/24 Atorvastatin Calcium [Lipitor] 80 mg PO DAILY 01/29/24 Cholecalciferol (Vitamin D3) [Vitamin D3] 25 mcg PO DAILY 01/29/24 Clopidogrel Bisulfate [Plavix*] 75 mg PO DAILY 01/29/24 Escitalopram Oxalate [Lexapro] 10 mg PO DAILY 01/29/24 Gabapentin 600 mg PO TID 01/29/24 Insulin Regular, Human [Novolin R Flexpen] 15 unit SQ TIDWM 01/29/24 Levothyroxine [Synthroid*] 50 mcg PO DAILY 01/29/24 Metoprolol Succinate 25 mg PO BEDTIME 01/29/24 NPH, Human Insulin Isophane [Humulin N] 30 unit SQ BID 01/29/24 Pantoprazole [Protonix Tab*] 40 mg PO DAILY 01/29/24 Potassium Chloride 10 meq PO DAILY 01/29/24 Rivaroxaban [Xarelto*] 15 mg PO DAILY 01/29/24 Sennosides [Senokot] 8.6 mg PO BID 01/29/24 Bumetanide 1 mg PO DAILYPRN PRN #10 01/30/24 fentaNYL [Fentanyl] 25 mcg TD Q72H #10 patch 01/30/24 - Past Medical/Surgical History Diabetic: Yes Past Medical History: Reviewed- Non-Contributory -: Diabetes -: Hypertension -: CAD -: Gout -: Depression -: Stage IV lung cancer Past Surgical History: Reviewed- Non-Contributory -: open heart surgery - Social History Smoking Status: Former smoker Alcohol use: No CD- Drugs: No Caffeine use: Yes Review of Systems 10-point ROS is otherwise unremarkable Physical Examination - Vital Signs Temperature: 98.2 F Blood Pressure: 130/72 Pulse: 78 Respirations: 18 Pulse Ox (%): 94 - Physical Exam General: Alert, Oriented x3, Mild distress HEENT: Atraumatic, Normocephalic Neck: Supple Respiratory: Normal air movement, Diminished, Crackles/rales Cardiovascular: Regular rate/rhythm, Normal S1 S2 Capillary refill: <2 Seconds Gastrointestinal: Soft and benign, W/out hepatosplenomegaly Musculoskeletal: No clubbing, No swelling Integumentary: No rashes Neurological: Normal speech, Cranial nerves 3-12 intact, Normal affect Lymphatics: No axilla or inguinal lymphadenopathy - Studies Laboratory Data (last 24 hrs) 08/24/24 08/24/24 01:00 01:00 WBC 7.20 Hgb 12.3 L Hct 36.6 L Plt Count 177 Sodium 137 Potassium 3.7 BUN 23 H Creatinine 1.43 H Glucose 96 Microbiology Data (last 24 hrs): 08/24/24 01:15 Nasopharnyx Influenza Type A Antigen Screen - Final 08/24/24 01:15 Nasopharnyx Influenza Type B Antigen Screen - Final Assessment and Plan - Plan Bilateral pneumonia right worse than left Started on IV antibiotic Monitor closely Obtain cultures Change antibiotic as per sensitivity History of lung cancer CT findings noted Continue home medications and titrate as needed Acute hypoxic respiratory failure Oxygen supplementation Will try to wean down oxygen requirement Hypertension Antihypertensives titrated Continue home medications and titrate as needed Hyperlipidemia Continue statin CKD stage II Monitor renal parameters Electrolytes monitor and replace accordingly Diabetes Patient noted to be hypoglycemic Will hold insulin Accu-Chek before every meal and at bedtime GI/DVT prophylaxis Advanced directive full code Discharge Plan: Home Plan to discharge in: 48 Hours - Advance Directives Does patient have a Living Will: No Does patient have a Durable POA for Healthcare: No - Code Status/Comfort Care Code Status: Full Code Time Spent Managing Pts Care (In Minutes): 48
[2024-08-24] MEDS ORDERED: guaiFENesin 100 MG/5 ML UCUP PO PRN (06:48)
[2024-08-24] MEDS ORDERED: D10W 125 ML IV PRN (06:51)
[2024-08-24] MEDS ORDERED: GLUCAGON 1 MG/VIAL IM PRN (06:51)
[2024-08-24] MEDS: INSULIN REGULAR (HUMAN) 100 UNIT/ML SQ SCH (08:26)
[2024-08-24] MEDS: ENOXAPARIN 40 MG/0.4 ML SQ SCH ×2 (09:00→13:27)
[2024-08-24] MEDS: CEFTRIAXONE 1,000 MG in NA CHLORIDE 0.9% 50 ML IVPB SCH (09:42)
[2024-08-24] MEDS: AZITHROMYCIN IV 500 MG in NA CHLORIDE 0.9% 250 ML IVPB SCH (09:43)
--- NOTE | 2024-08-24 11:06 | P.PN ---
Date of Service: 08/24/24 Brief internal medicine note This is 84 years old gentleman with past medical history significant for stage IV lung cancer on immunotherapy, type 2 diabetes, hypertension, heart failure, A-fib who presented to emergency room for evaluation of a week of general weakness and shortness of breath, diagnosed with pneumonia by CT scan and was started on ceftriaxone and azithromycin and supplemental oxygen by nasal cannula and admitted on medical floor. #1 acute hypoxic respiratory failure related to #2 #2 community-acquired pneumonia by CT of the chest #3 history of diabetes with hypoglycemic episode I will continue supplemental oxygen by nasal cannula, currently on 2 L/min, CT of the chest on admission personally reviewed, consolidation in the light upper lobe, no fever, no leukocytosis, test negative for influenza, I will continue current antibiotics, nebulizer treatment, antitussive, his blood sugar was 46, it came up to 208, will hold his diabetic medication for now, continue low-dose insulin sliding scale, obtain hemoglobin A1c, I will order sputum culture. May discharge home in a few days depending on responding to medical treatment.
[2024-08-24 11:14] VITALS: BMI 29.1
[2024-08-24] MEDS: ACETAMINOPHEN 325 MG TABLET PO PRN (15:49)
[2024-08-24] MEDS: HOME MED 1 EA UNK (Fentanyl [Fentanyl] Patch.Td72) TD SCH (16:15)
[2024-08-24] MEDS: GABAPENTIN 400 MG CAP PO SCH (20:20)
[2024-08-24] MEDS: TRAMADOL HCL 50 MG TAB PO SCH (20:20)
[2024-08-24] MEDS: ATORVASTATIN 80 MG TAB PO SCH (20:20)
[2024-08-24] MEDS: ESCITALOPRAM 20 MG TAB PO SCH (20:20)
[2024-08-24] MEDS: CLOPIDOGREL 75 MG TABLET PO SCH (20:21)
[2024-08-24] MEDS: METOPROLOL XL 25 MG TAB PO SCH (20:21)
[2024-08-24] MEDS ORDERED: HOME MED 1 EA UNK (Gabapentin [Gabapentin] 600 MG Tablet) PO SCH (21:00)
[2024-08-25 06:41] LABS: Absolute Eosinophils 0.3 K/uL (0-0.5); Absolute Lymphocytes (CBC) 0.9 K/uL (0.7-4.9); Absolute Monocytes 0.6 K/uL (0.1-1.3); Absolute Neutrophil 4.9 K/uL (1.8-8.0); Basophils % 0.4 % (0-1.3); Eosinophils % 4.5 % (0-4.4); Hematocrit 32.7 % (39.6-49.0); Hemoglobin 10.9 g/dL (13.6-17.9); Lymphocytes % 13.8 % (15.3-44.8); MCH 27.5 pg (27.0-35.0); MCHC 33.3 g/dL (32.0-36.0); MCV 82.6 fL (80-100); MPV 7.3 fL (7.6-11.3); Monocytes % 9.2 % (3.3-12.3); Neutrophils % 72.1 % (41.7-73.7); Nucleated Red Blood Cells % 0.1 % (0-0); Platelets 165 thou/uL (152-406); RBC Red Blood Cell Count 3.96 M/uL (4.33-5.43); Red Cell Distribution Width 14.1 % (12.1-15.2)
[2024-08-25 07:04] LABS: ALT/SGPT < 14 U/L (16-61); AST/SGOT 14 U/L (15-37); Albumin 2.9 g/dL (3.4-5.0); Albumin/Globulin Ratio 0.8 (1.1-1.8); Alkaline Phosphatase 131 U/L (45-117); Anion Gap 4.7 mEq/L (5.0-15.0); BUN Blood Urea Nitrogen 18 mg/dL (7-18); Bicarbonate 35 mEq/L (21-32); Bilirubin Total 0.4 mg/dL (0.2-1.0); Globulin 3.7 g/dL (2.3-3.5); Glomerular Filtration Rate 55 ml/min (=/>90); Glucose Level 127 mg/dL (74-106); Magnesium 2.2 mg/dL (1.6-2.4); Phosphorus 2.6 mg/dL (2.5-4.9); Potassium 4.7 mEq/L (3.5-5.1); Protein, Total 6.6 g/dL (6.4-8.2); Sodium Level 135 mEq/L (136-145)
[2024-08-25] MEDS: LEVOTHYROXINE SOD 0.05 MG TABLET PO SCH (08:24)
[2024-08-25] MEDS: POTASSIUM CL SA 10 MEQ TAB PO SCH (08:24)
[2024-08-25] MEDS: GABAPENTIN 300 MG CAP PO SCH (08:24)
[2024-08-25] MEDS: BUMETANIDE 1 MG TABLET PO SCH (08:25)
[2024-08-25 11:28] VITALS: O2SAT 98
[2024-08-25 13:00] VITALS: BP 127/60; TEMP 98.1
[2024-08-27] MEDS ORDERED: FENTANYL 25 MCG/PATCH TD SCH (09:00)
--- NOTE | 2024-08-29 16:10 | EKG ---
Test Date: 2024-08-24 Test Time: 00:40:32 Bottom Loader: DINH MEASUREMENT RESULTS: Intervals: Rate: 81 NM: 172 QRSD: 96 QT: 390 QTc: 453 Lapel: P: 61 NM: 172 QRS: 27 T: 89 INTERPRETIVE STATEMENTS: Normal sinus rhythm Normal ECG Compared to ECG 01/29/2024 11:05:17 Left ventricular hypertrophy no longer present Electronically Signed On 08-29-24 15:59:23 BOTTLER HELPER by Duc Turk
--- NOTE | 2024-09-01 16:02 | P.DS ---
Discharge Date: 08/25/24 Disposition: ROUTINE DISCHARGE Discharge Condition: GOOD Reason for Admission: SOB Brief History of Present Illness: 84-year-old male with past medical history of diabetes, hypertension, hypothyroidism, CHF, A-fib, neuropathy, CAD , history of lung cancer on immunotherapy who was brought to ER with shortness of breath and generalized weakness which has been going on for the last 3 days and has been progressively getting worse and was brought to ER. Patient denies any chest pain. No nausea vomiting or diarrhea. No fever or chills. Feeling short of breath. Associated with cough with mucoid expectoration. No sick contacts. Patient was assessed in the ER and is admitted for further management of acute hypoxic respiratory failure and also pneumonia. Hospital Course: Patient was treated with antibiotic therapy and clinically has done well. Patient is clinically doing much better. Patient will follow-up with pulmonary as an outpatient. Continue with cough medication as needed. Patient will discharge with outpatient follow-up as mentioned. Vital Signs/Physical Exam: Temp Pulse Resp BP Pulse Ox 98.1 F 69 18 127/60 97 08/25/24 12:00 08/25/24 12:00 08/25/24 12:00 08/25/24 12:00 08/25/24 12:00 General: Alert, In no apparent distress, Oriented x3 Laboratory Data at Discharge: WBC 6.80 thou/uL (4.3-10.9) 08/25/24 05:50 Hgb 10.9 g/dL (13.6-17.9) L 08/25/24 05:50 Hct 32.7 % (39.6-49.0) L 08/25/24 05:50 Plt Count 165 thou/uL (152-406) 08/25/24 05:50 Sodium 135 mEq/L (136-145) L 08/25/24 05:50 Potassium 4.7 mEq/L (3.5-5.1) 08/25/24 05:50 BUN 18 mg/dL (7-18) 08/25/24 05:50 Creatinine 1.30 mg/dL (0.70-1.30) 08/25/24 05:50 Glucose 127 mg/dL (74-106) H 08/25/24 05:50 Phosphorus 2.6 mg/dL (2.5-4.9) 08/25/24 05:50 Magnesium 2.2 mg/dL (1.6-2.4) 08/25/24 05:50 Total Bilirubin 0.4 mg/dL (0.2-1.0) 08/25/24 05:50 AST 14 U/L (15-37) L 08/25/24 05:50 ALT < 14 U/L (16-61) L 08/25/24 05:50 Alkaline Phosphatase 131 U/L (45-117) H 08/25/24 05:50 Home Medications: Acetaminophen [Tylenol Extra Strength] 2 tab PO Q8H PRN 01/29/24 Atorvastatin Calcium [Lipitor] 80 mg PO BEDTIME 01/29/24 Clopidogrel Bisulfate [Plavix*] 75 mg PO BEDTIME 01/29/24 Escitalopram Oxalate [Lexapro] 10 mg PO BID 01/29/24 Gabapentin 3 tab PO TID 01/29/24 Insulin Regular, Human [Novolin R Flexpen] 15 unit SQ TIDWM 01/29/24 Levothyroxine [Synthroid*] 50 mcg PO DAILY 01/29/24 Metoprolol Succinate 25 mg PO BEDTIME 01/29/24 Pantoprazole [Protonix Tab*] 40 mg PO DAILY 01/29/24 Potassium Chloride 10 meq PO DAILY 01/29/24 fentaNYL [Fentanyl] 25 mcg TD Q72H #10 patch 01/30/24 Bumetanide 1 mg PO DAILY 08/24/24 Tramadol HCl [Ultram] 50 mg PO BEDTIME 08/24/24 Cefdinir [Cefdinir*] 300 mg PO BID #14 cap 08/25/24 guaiFENesin [Robitussin 100MG/5ML*] 100 ml PO BID PRN #100 ml 08/25/24 New Medications: Cefdinir [Cefdinir*] 300 mg PO BID #14 cap guaiFENesin [Robitussin 100MG/5ML*] 100 ml PO BID PRN #100 ml PRN Reason: Cough Physician Discharge Instructions: -DC IV and DC home -Follow-up with PCP in 1 to 2 weeks -Follow-up with [facility] and Oncologist in 1 to 2 weeks -Please call Dr. May at [phone] if any questions regarding hospital stay -Please call nursing station at [phone] if any nursing or medication questions -Return to the emergency room if symptoms worsen Diet: Regular Activity: Fall precautions Followup: Jaime Grier MD [ACTIVE - CAN ADMIT] - 1-2 Weeks OOT,MYRNA [Primary Care Provider] - Time spent managing pt's care (in minutes): 35
== END 2024-08-25 15:07 | disposition home or self-care (01) | DRG 193 ==
LOC: ER 00:27 → 4TH 05:34
PROVIDERS: ADMIT Family Medicine; ATTEND Hospitalist
DX: J18.9 Pneumonia, unspecified organism (principal); J96.01 Acute respiratory failure with hypoxia; C34.90 Malignant neoplasm of unspecified part of unspecified bronchus or lung; E03.9 Hypothyroidism, unspecified; M10.9 Gout, unspecified; I48.91 Unspecified atrial fibrillation; I12.9 Hypertensive chronic kidney disease with stage 1 through stage 4 chronic kidney disease, or unspecified chronic kidney disease; N18.2 Chronic kidney disease, stage 2 (mild); E11.22 Type 2 diabetes mellitus with diabetic chronic kidney disease; E11.40 Type 2 diabetes mellitus with diabetic neuropathy, unspecified; E11.649 Type 2 diabetes mellitus with hypoglycemia without coma; I25.10 Atherosclerotic heart disease of native coronary artery without angina pectoris; Z11.52 Encounter for screening for COVID-19; Z79.02 Long term (current) use of antithrombotics/antiplatelets; Z79.890 Hormone replacement therapy; Z79.899 Other long term (current) drug therapy; Z87.891 Personal history of nicotine dependence
CPT/HCPCS: 36415; 71260; 80048; 80053; 82947; 83036; 83735; 84100; 84484; 85025; 87804; 87811; 93005; 94760; 96365; 96375; 99285; J0696; J1650; J7040; J7050; Q9967

== ENCOUNTER 2024-11-18 04:21 | Emergency (ER) | payer OTHER ==
--- NOTE | 2024-11-18 06:35 | ER ---
Nurse's Notes [facility] Name: Daniel Sharp Age: 84 yrs Sex: Male : 1940 Arrival Date: 11/18/2024 Time: 04:21 Bed 2 Private MD: Diagnosis: Fall, closed head injury, scalp hematoma Presentation: 11/18 04:29 Chief complaint: EMS states: fell and hit the back of head, no LOC and no blood vc1 thinners. Coronavirus screen: Client denies travel out of the [place] in the last 14 days. At this time, the client does not indicate any symptoms associated with coronavirus-19. Ebola Screen: Patient negative for fever greater than or equal to 101.5 degrees Fahrenheit, and additional compatible Ebola Virus Disease symptoms Patient denies exposure to infectious person. Patient denies travel to an Ebola-affected area in the 21 days before illness onset. No symptoms or risks identified at this time. Initial Sepsis Screen: Does the patient meet any 2 criteria? No. Patient's initial sepsis screen is negative. Does the patient have a suspected source of infection? No. Patient's initial sepsis screen is negative. Risk Assessment: Do you want to hurt yourself or someone else? Patient reports no desire to harm self or others. Onset of symptoms was November 18, 2024. Care prior to arrival: None. 04:29 Method Of Arrival: EMS: [facility] vc1 04:29 Acuity: KHOI 3 vc1 Historical: - Allergies: 04:33 No Known Allergies; vc1 - Home Meds: 04:33 atorvastatin 80 mg Oral tablet 1 tab daily [Active]; bumetanide 1 mg Oral tablet 1 tab vc1 daily [Active]; cetirizine 10 mg Oral tablet 1 tab daily [Active]; clopidogrel 75 mg Oral tablet 1 tab daily [Active]; escitalopram oxalate 10 mg Oral tablet 1 tab twice a day [Active]; gabapentin 600 mg Oral tablet 1 tab 3 times per day [Active]; isosorbide dinitrate 30 mg Oral tablet 1 tab daily [Active]; levothyroxine 50 mcg tablet 1 tabs daily [Active]; metoprolol succinate 25 mg Oral tablet 1 tab nightly [Active]; pantoprazole 40 mg Oral tablet 1 tab daily [Active]; spironolactone 50 mg Oral tablet 1 tab daily [Active]; - PMHx: 04:33 a-fib; CHF; HTN; neuropathy; Hypothyroidism; diabetes mellitus; chronic back pain; vc1 - PSHx: 04:33 open heart surgery; vc1 - Immunization history:: Client reports receiving the 2nd dose of the Covid vaccine. - Infectious Disease History:: Denies. - Social history:: Smoking status: Patient/guardian denies using tobacco, but has a distant history of tobacco abuse. Screenin:37 [facility] ED Fall Risk Assessment (Adult) History of falling in the last 3 months, vc1 including since admission No falls in past 3 months (0 pts) Confusion or Disorientation No (0 pts) Intoxicated or Sedated No (0 pts) Impaired Gait No (0 pts) Mobility Assist Device Used No (0 pt) Altered Elimination No (0 pt) Score/Fall Risk Level 0 - 2 = Low Risk Oriented to surroundings, Maintained a safe environment, Educated pt \T\ family on fall prevention, incl call for assistance when getting out of bed. Abuse screen: Denies threats or abuse. Nutritional screening: No deficits noted. Tuberculosis screening: No symptoms or risk factors identified. Vital Signs: 04:22 BP 142 / 64; vc1 04:29 Pulse 79; Resp 14; Temp 98; Pulse Ox 98% ; Weight 82.1 kg; Height 5 ft. 11 in. ; vc1 06:56 BP 137 / 66; Pulse 88; Resp 15; Pulse Ox 100% ; vc1 04:29 Body Mass Index 25.24 (82.10 kg, 180.34 cm) vc1 ED Course: 04:22 Patient arrived in ED. [id number] 04:24 Suzi Dimas MD is Attending Physician. sp3 04:33 Triage completed. vc1 04:37 Arm band placed on right wrist. vc1 04:37 Patient has correct armband on for positive identification. Bed in low position. vc1 Provided Education on: fall safety. 05:17 Head C Spine Mpr Wo Con In Process Unspecified. EDMS 05:17 Chest Abd Pelvis Wo Con In Process Unspecified. EDMS 06:52 No provider procedures requiring assistance completed. Patient did not have IV access vc1 during this emergency room visit. Administered Medications: No medications were administered Medication: 06:53 VIS not applicable for this client. vc1 Outcome: 06:35 Discharge ordered by . sp3 06:53 Discharged to home via wheelchair, with family, vc1 06:53 Condition: good 06:53 Discharge instructions given to patient, Instructed on discharge instructions, follow up and referral plans. Demonstrated understanding of instructions, follow-up care, 06:56 Patient left the ED. vc1 Signatures: Dispatcher [employer] Suzi Hinton MD MD sp3 Cuca Caballero6 Irish Vieira RN RN vc1
--- NOTE | 2024-11-18 06:35 | EDPHYS ---
Physician Documentation [facility] Name: Daniel Sharp Age: 84 yrs Sex: Male : 1940 Arrival Date: 11/18/2024 Time: 04:21 Bed 2 Private MD: ED Physician Suzi Dimas HPI: 11/18 04:44 This 84 yrs old Male presents to ER via EMS with complaints of Fall Injury. sp3 04:44 84-year-old male with history of A-fib, hypertension, hypothyroidism, diabetes, stage sp3 IV lung cancer now presents to the ED with chief complaint mechanical fall secondary to not being on oxygen while ambulating. Patient fell and hit his head but does remember the fall. No loss of consciousness. No bleeding. Vital signs normal for EMS. Patient's son brought him in to be safe. Patient is retired military police officer of [employer].. Historical: - Allergies: 04:33 No Known Allergies; vc1 - Home Meds: 04:33 atorvastatin 80 mg Oral tablet 1 tab daily [Active]; bumetanide 1 mg Oral tablet 1 tab vc1 daily [Active]; cetirizine 10 mg Oral tablet 1 tab daily [Active]; clopidogrel 75 mg Oral tablet 1 tab daily [Active]; escitalopram oxalate 10 mg Oral tablet 1 tab twice a day [Active]; gabapentin 600 mg Oral tablet 1 tab 3 times per day [Active]; isosorbide dinitrate 30 mg Oral tablet 1 tab daily [Active]; levothyroxine 50 mcg tablet 1 tabs daily [Active]; metoprolol succinate 25 mg Oral tablet 1 tab nightly [Active]; pantoprazole 40 mg Oral tablet 1 tab daily [Active]; spironolactone 50 mg Oral tablet 1 tab daily [Active]; - PMHx: 04:33 a-fib; CHF; HTN; neuropathy; Hypothyroidism; diabetes mellitus; chronic back pain; vc1 - PSHx: 04:33 open heart surgery; vc1 - Immunization history:: Client reports receiving the 2nd dose of the Covid vaccine. - Infectious Disease History:: Denies. - Social history:: Smoking status: Patient/guardian denies using tobacco, but has a distant history of tobacco abuse. ROS: 04:48 Constitutional: Negative for fever, chills, and weight loss, Eyes: Negative for injury, sp3 pain, redness, and discharge, Neck: Negative for injury, pain, and swelling, Cardiovascular: Negative for chest pain, palpitations, and edema, Abdomen/GI: Negative for abdominal pain, nausea, vomiting, diarrhea, and constipation, MS/Extremity: Negative for injury and deformity, Skin: Negative for injury, rash, and discoloration, Neuro: Negative for headache, weakness, numbness, tingling, and seizure, Psych: Negative for depression, anxiety, suicide ideation, homicidal ideation, and hallucinations, Allergy/Immunology: Negative for hives, rash, and allergies, Endocrine: Negative for neck swelling, polydipsia, polyuria, polyphagia, and marked weight changes, 04:48 All other systems are negative, Exam: 04:48 Constitutional: This is a well developed, well nourished patient who is awake, alert, sp3 and in no acute distress. Eyes: Pupils equal round and reactive to light, extra-ocular motions intact. Lids and lashes normal. Conjunctiva and sclera are non-icteric and not injected. Cornea within normal limits. Periorbital areas with no swelling, redness, or edema. Neck: Trachea midline, no thyromegaly or masses palpated, and no cervical lymphadenopathy. Supple, full range of motion without nuchal rigidity, or vertebral point tenderness. No Meningismus. Chest/axilla: Normal chest wall appearance and motion. Nontender with no deformity. No lesions are appreciated. Cardiovascular: Regular rate and rhythm with a normal S1 and S2. No gallops, murmurs, or rubs. Normal PMI, no JVD. No pulse deficits. Respiratory: Lungs have equal breath sounds bilaterally, clear to auscultation and percussion. No rales, rhonchi or wheezes noted. No increased work of breathing, no retractions or nasal flaring. Abdomen/GI: Soft, non-tender, with normal bowel sounds. No distension or tympany. No guarding or rebound. No evidence of tenderness throughout. Back: No spinal tenderness. No costovertebral tenderness. Full range of motion. Skin: Warm, dry with normal turgor. Normal color with no rashes, no lesions, and no evidence of cellulitis. MS/ Extremity: Pulses equal, no cyanosis. Neurovascular intact. Full, normal range of motion. Neuro: Awake and alert, GCS 15, oriented to person, place, time, and situation. Cranial nerves II-XII grossly intact. Motor strength 5/5 in all extremities. Sensory grossly intact. Cerebellar exam normal. Normal gait. Psych: Awake, alert, with orientation to person, place and time. Behavior, mood, and affect are within normal limits. 04:48 Head/face: Small hematoma posteriorly on the occiput.. Vital Signs: 04:22 BP 142 / 64; vc1 04:29 Pulse 79; Resp 14; Temp 98; Pulse Ox 98% ; Weight 82.1 kg; Height 5 ft. 11 in. ; vc1 06:56 BP 137 / 66; Pulse 88; Resp 15; Pulse Ox 100% ; vc1 04:29 Body Mass Index 25.24 (82.10 kg, 180.34 cm) vc1 MDM: 04:24 Medical Screening Exam initiated sp3 04:49 Data reviewed: vital signs, nurses notes, old medical records, radiologic studies. ED sp3 course: 84-year-old male with mechanical fall secondary to low oxygen alert and oriented with no complaints except mild headache. Workup will include CT traumagram noncontrast and general supportive care. Pain medications not requested. If scan negative, we will safely discharge patient home.. 06:34 ED course: All trauma scans negative. We will safely discharge patient home at this sp3 time.. 11/18 04:45 Order name: Head C Spine Mpr Wo Con EDTN 11/18 04:46 Order name: Chest Abd Pelvis Wo Con EDTN Administered Medications: No medications were administered Disposition Summary: 11/18/24 06:35 Discharge Ordered Notes: Location: Home sp3 Condition: Stable sp3 Diagnosis - Fall, closed head injury, scalp hematoma sp3 Followup: sp3 - With: Private Physician - When: Upon discharge from the Emergency Department - Reason: Continuance of care Discharge Instructions: - Discharge Summary Sheet sp3 - Head Injury, Adult sp3 - Fall Prevention in the Home, Adult sp3 Forms: - Medication Reconciliation Form sp3 - Antibiotic Education sp3 - Prescription Opioid Use sp3 - Patient Portal Instructions sp3 - Leadership Thank You Letter sp3 Signatures: Dispatcher [facility] Suzi Hinton MD MD sp3 Irish Vieira RN RN vc1 Corrections: (The following items were deleted from the chart) 04:25 04:25 Labs collected and sent ordered. sp3 sp3 04:45 04:25 Head C Spine Cap Wo Con+CT.RAD.BRZ ordered. EDMS EDMS
--- NOTE | 2024-11-18 06:38 | RAD REPORT ---
EXAM: CT Head and Cervical Spine Without Intravenous Contrast CLINICAL HISTORY: The patient is 84 years old and is Male; TRAUMA TECHNIQUE: Axial computed tomography images of the head/brain and cervical spine without intravenou s contrast. Sagittal and coronal reformatted images were created and reviewed. This CT exam was performed using one or more of the following dose reduction techniques: automated exposure control, adjustment of the mA and/or kV according to patient size, and/or use of iterative reconstruction technique. COMPARISON: No relevant prior studies available. FINDINGS: Limitations: Evaluation limited by artifact. Brain: Mild nonspecific white matter changes likely related to chronic microvascular ischemic dis ease. No hemorrhage. Ventricles: Unremarkable. No ventriculomegaly. Skull: See below. Sinuses: Unremarkable as visualized. No acute sinusitis. Mastoid air cells: Unremarkable as visualized. No mastoid effusion. Vertebrae: Posterior mitra and screw fixation with posterior decompression from C3 to C6. 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 Normal alignment. Discs/spinal canal/neural foramina: Osseous fusion with absence of the disc at C5-6. Moderate bilateral neural foraminal narrowing at 3-4. Soft tissues: Unremarkable. * A single impression for all exams can be found at the end of this report EXAM: CT Chest, Abdomen and Pelvis Without Intravenous Contrast CLINICAL HISTORY: The patient is 84 years old and is Male; TRAUMA TECHNIQUE: Axial computed tomography images of the chest, abdomen and pelvis without intravenous co ntrast. Sagittal and coronal reformatted images were created and reviewed. This CT exam was performed using one or more of the following dose reduction techniques: automated exposure control, adjustment of the mA and/or kV according to patient size, and/or use of iterative reconstruction technique. COMPARISON: No relevant prior studies available. FINDINGS: CHEST: Lungs: Scattered interstitial thickening in the lungs bilaterally. No mass. No consolidation. Pleural space: Unremarkable. No significant effusion. No pneumothorax. Heart: Unremarkable. No cardiomegaly. No significant pericardial effusion. No significant c oronary artery calcifications. ABDOMEN: Liver: Unremarkable. Gallbladder and bile ducts: Unremarkable. No calcified stones. No ductal dilation. Pancreas: Unremarkable. No ductal dilation. Spleen: Unremarkable. No splenomegaly. Adrenals: Unremarkable. No mass. Kidneys and ureters: Simple cysts in the kidneys. No follow-up imaging is recommended. No obstructing stones. No hydronephrosis. Stomach and bowel: Scattered colonic diverticula. No obstruction. No mucosal thickening. PELVIS: Appendix: No findings to suggest acute appendicitis. Bladder: Unremarkable. No stones. Reproductive: Unremarkable as visualized. CHEST, ABDOMEN and PELVIS: Intraperitoneal space: Unremarkable. No significant fluid collection. No free air. Bones/joints: Median sternotomy wires. Disc space narrowing with degenerative endplate changes in the spine. No acute fracture. No dislocation. Soft tissues: Gynecomastia. Vasculature: Scattered atherosclerotic vascular calcifications. No aortic aneurysm. Lymph nodes: Unremarkable. No enlarged lymph nodes. * A single impression for all exams can be found at the end of this report IMPRESSION: CT Head and Cervical Spine Without Intravenous Contrast: No acute intracranial abnormality. No acute findings in the cervical spine. CT Chest, Abdomen and Pelvis Without Intravenous Contrast: No acute findings in the chest, abdomen or pelvis. Electronically signed by: Per Hinojosa MD 11/18/2024 06:23 AM [facility] 8 Due to temporary technical issues with the [email or web address] reporting system, reports are being cierra d by the in-house radiologist without review as a courtesy to ensure prompt reporting the interpreting radiologist is fully responsible for the content of the report. Transcribed Date/Time: 11/18/2024 6:38 AM
[2024-11-18 07:01] VITALS: TEMP 98
[2024-11-18 07:03] VITALS: BP 137/66; O2SAT 100
== END 2024-11-18 06:56 | disposition home or self-care (01) ==
LOC: ER 04:21
DX: S00.03XA Contusion of scalp, initial encounter (principal); W18.30XA Fall on same level, unspecified, initial encounter; C34.90 Malignant neoplasm of unspecified part of unspecified bronchus or lung; I48.91 Unspecified atrial fibrillation; Z99.81 Dependence on supplemental oxygen
CPT/HCPCS: 70450; 71250; 72125; 74176